=== PATIENT | female | born 1990 | race Caucasian/White ===

== ENCOUNTER 2024-09-26 13:06 | Inpatient (IN) | payer OTHER, SELFPAY ==
[2024-09-26] VITALS (8 sets, daily range): BP systolic 98–123; BP diastolic 48–96; BMI 16.8; BMI 17.0
[2024-09-26 07:10] LABS: Amphetamines Negative (Negative); Barbiturates Negative (Negative); Benzodiazepines Negative (Negative); Buprenorphine Negative (Negative); Cocaine Negative (Negative); Marijuana Positive (Negative); Methadone Negative (Negative); Methamphetamines Negative (Negative); Opiates Negative (Negative); Phencyclidine Negative (Negative); Tricyclic Antidepressants Negative (Negative)
[2024-09-26] MEDS: NSS 1000 IV ×2 (07:36→09:09)
--- NOTE | 2024-09-26 07:40 | EDRN ---
Received patient in bed in Crisis room 2. Patient with visual and auditory hallucinations. Per parents that patient has not been eating or drinking well for the past 2 weeks. Patient stated that the voices do not tell her to hurt herself or others.
Patient moved to ED room 11 for cardiac monitoring.
--- NOTE | 2024-09-26 07:40 | ED.GENMED ---
History of Present Illness
General
Chief Complaint: Hallucinations
Source: patient and family
Exam Limitations: altered mental status
Time Seen by Provider: 09/26/24 07:06
History of Present Illness
History of Present Illness:
34-year-old female history of anxiety and depression not on any medications at this time never been hospitalized, presents for paranoid thoughts, some delusions of people or after, she was at her boyfriend's for a few weeks, called her family states
that she has been in the closet, worried that people are looking at her, she is lost about 30 pounds not eating or drinking for at least a week or 2, admits to marijuana use no methamphetamine use, never had problems with her thyroid, she had no
fevers,
Past History
Past History
ED Past Medical History: Psychiatric
ED Past Surgical History: None
Social History
Tobacco: Smoker
Alcohol: Occasional
Drug: Marijuana
Personal: Single
Living: with family
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
Review of Systems
Review of Systems
All Other Systems: Not applicable
Constitutional: Reports weight loss, fatigue and sleep disturbance; Denies fever
EENT: Reports no symptoms
Respiratory: Reports no symptoms
Cardiac: Reports no symptoms
Psychiatric: Reports depression, anxiety and hallucinations; Denies suicidal
Phy Exam
Physical Exam
Physical Exam:
Physical Exam
General: 34 female looks thin affect is flat cooperative
Neck: Lips are dry no goiter
Heart: s1/s2 regular rate and rhythm, no murmur. equal radial pulses.
Lungs: no acute respiratory distress. clear bilaterally
Neuro: alert and oriented. no focal neurological deficits
Skin: no rash
Psychiatric: Somewhat disheveled flat, cooperative not suicidal little bit fidgety
Extremities: no edema.
Course
Orders/Labs/Results
Orders:
Orders
09/26/24 06:26
Urinalysis Reflex To Culture Urgent
Date Specimen was Collected: 09/26/24
Time Specimen was Collected: :25
Urine Drug Abuse Screen Urgent
Date Specimen was Collected: 09/26/24
Time Specimen was Collected: 06:25
09/26/24 06:38
Crisis Consult Urgent
Reason for Consult: hallucinating
09/26/24 07:16
0.9% Sodium Chloride 1000 ml [Nss] 1,000 ml IV BOLUS
Test Result ONCE
09/26/24 07:17
Electrocardiogram (*1) Urgent
Reason for Study: QTc Monitoring
EKG- Treatment ONCE
09/26/24 07:19
Add On- LAB Urgent
Tests Added?: urine drug screen
09/26/24 07:31
Urine Drug Abuse Screen Urgent
09/26/24 07:38
Alcohol Urgent
Complete Blood Count/With Diff Urgent
Comprehensive Metabolic Panel Urgent
HCG, Serum Qualitative Screen Urgent
Magnesium Urgent
TSH Urgent
09/26/24 08:14
Magnesium Sulfate 2 Gram/50 ml [Magnesium Sulfate] 2 gram in 50 ml IV NOW
Potassium Chloride [KCl] 40 meq PO NOW STA
Potassium Chloride [KCl] 40 meq 0.9% Sodium Chloride 250 ml [Nss] 250 ml IV NOW
09/26/24 08:15
PSYCHIATRY CONSULT Routine
Consulting Provider: Ernie Pratt
Was physician already notified: Yes
Abnormal Lab Results
09/26/24 09/26/24
06:26 07:38
RBC 3.06 L 10^6/uL
(4.20-5.40)
Hgb 11.1 L g/dL
(12.0-16.0)
Hct 30.0 L %
(37.0-47.0)
MCH 36.3 H pg
(27.0-31.0)
RDW 10.8 L %
(11.5-14.5)
MPV 11.5 H fL
(7.4-10.4)
Abs Immat Gran (auto) 0.1 H 10^3/uL
(0-0.05)
Absolute Monos (auto) 0.9 H 10^3/uL
(0.1-0.6)
Immature Gran % 0.9 H %
(0-0.5)
Lymphocytes % 19.2 L %
(20.5-51.1)
Monocytes % 9.4 H %
(1.7-9.3)
Sodium 126 L mmol/L
(135-145)
Potassium 2.3 L* mmol/L
(3.5-5.1)
Chloride 76 L mmol/L
(98-107)
Carbon Dioxide 35 H mmol/L
(22-30)
Glucose 139 H mg/dl
(70-99)
Total Bilirubin 1.6 H mg/dl
(0.2-1.3)
AST 233 H U/L
(14-36)
ALT 58 H U/L
(0-35)
Alkaline Phosphatase 208 H U/L
(38-126)
U Marijuana (THC) Screen Positive H
(Negative)
09/26/24 07:38
09/26/24 07:38
Vital Signs
Initial and Last Documented VS:
Initial Vital Signs
Temp Pulse BP Pulse Ox
98.3 F 136 123/96 98
09/26/24 05:59 09/26/24 05:59 09/26/24 05:59 09/26/24 05:59
Last Documented Vital Signs
Temp Pulse Resp BP Pulse Ox
98.3 F 97 13 109/86 98
09/26/24 05:59 09/26/24 08:00 09/26/24 08:00 09/26/24 08:00 09/26/24 05:59
MDM/Problems Addressed
Differential Diagnosis Includes:
Dehydration electrolyte abnormality hyperthyroid amphetamine use, primary psychiatric
MDM/Problems Addressed:
Mental status change, weight loss, delusions paranoia
Chronic conditions affecting care: Psychiatric illness
Acute Exacerbation and/or Progression of Chronic Illness: Psychiatric illness
*Pulse Oximetry
Patient hypoxic: no
*Critical Care Note
Total Time (30-74mins, 75-104mins- exclusive of procedures): Not Applicable
Update Note
Update Note:
Update labs are noted significantly dehydrated with electrolyte abnormality patient still delusional speaking into her phone which is not functional, I believe at this point she should be admitted medically optimized, psychiatric consultation
discussed with family patient psychiatry and hospitalist
ED Attending Note
-
Portions of this chart may have been created with voice recognition software.� Occasional wrong word or��sound alike� substitutions may have occurred due to the inherent limitations of voice recognition software.
Discharge Plan
Departure
Patient Disposition: Admit
Date of Disposition: 09/26/24
Time of Disposition: 08:36
Admit to: Telemetry
Presentation/result/management discussed w/ accepting MD/DO: Hospitalist
Patient with high blood pressure during this ER visit?: No
Condition: Fair
Covid-19: Not Applicable
Discharge Problem:
Delirium, Delusions, Acute dehydration
Prescriptions:
No Action
famotidine 20 MG tablet
20 mg PO BID Qty: 20 0RF
Rx Instructions:
for stomach prohylaxis with ibuprofen
ibuprofen 600 MG tablet
600 mg PO Q8HPRN PRN (Reason: rib pain ) Qty: 40 0RF
albuterol sulfate [Albuterol Sulfate HFA] 18 GM HFA aerosol inhaler
18 gm inhalation Q2HPRN PRN (Reason: wheezing) Qty: 1 0RF
acetaminophen-codeine 10 ML solution
10 ml PO Q4HPRN PRN (Reason: cough) Qty: 120 0RF
dexamethasone [Decadron] 6 MG tablet
6 mg PO DAILY Qty: 5 0RF
Referrals:
NONE,* [Family Provider] -
Interventions
Interventions:
*Risk Screen - Suicide Last Done: 09/26/24 06:39
*General Assessment Last Done: 09/26/24 06:39
*Neglect/Abuse Screening Last Done: 09/26/24 06:39
ED- Fall Risk Assessment Last Done: 09/26/24 07:21
*ED COVID-19 Vaccine History Last Done: 09/26/24 06:39
ED-Suicide Risk Assessment Last Done: 09/26/24 06:39
ED- Neurological Assessment Last Done: 09/26/24 06:39
ED-Psychological Assessment Last Done: 09/26/24 06:39
Discharge Date and Time
Print Language: AZERBAIJANI
[2024-09-26 07:59] LABS: % Basophils 0.8 % (0-2); % Immature Granulocytes 0.9 % (0-0.5); % Lymphocytes 19.2 % (20.5-51.1); % Monocytes 9.4 % (1.7-9.3); % Neutrophils 69.7 % (42.2-75.2); Absolute Basophils 0.1 10^3/uL (0-0.2); Absolute Immature Granulocytes 0.1 10^3/uL (0-0.05); Absolute Lymphocytes 1.8 10^3/uL (1.2-3.4); Absolute Monocytes 0.9 10^3/uL (0.1-0.6); Absolute Neutrophils 6.4 10^3/uL (1.4-6.5); HCG, Serum Qualitative Screen Negative; Hemoglobin 11.1 g/dL (12.0-16.0); Mean Corpuscular Hgb 36.3 pg (27.0-31.0); Mean Platelet Volume 11.5 fL (7.4-10.4); Nucleated Red Blood Cells % 0.4 %; Platelet Count 192 10^3/uL (130-400); Red Blood Cell Count 3.06 10^6/uL (4.20-5.40); Red Cell Dist. Width 10.8 % (11.5-14.5); White Blood Cell Count 9.2 10^3/uL (4.8-10.8)
[2024-09-26 08:08] LABS: AST (SGOT) 233 U/L (14-36); Alcohol < 10 mg/dl; Alkaline Phosphatase 208 U/L (38-126); Blood Urea Nitrogen 14 mg/dl (7-17); Calcium 8.7 mg/dl (8.4-10.2); Carbon Dioxide 35 mmol/L (22-30); Chloride 76 mmol/L (98-107); Estimated Creatinine Clearance 83 ml/min; Glucose 139 mg/dl (70-99); Magnesium 1.8 mg/dl (1.6-2.3); Potassium 2.3 mmol/L (3.5-5.1); Sodium 126 mmol/L (135-145); Total Bilirubin 1.6 mg/dl (0.2-1.3); eGFR > 60.00
[2024-09-26 08:20] LABS: ALT (SGPT) 58 U/L (0-35)
[2024-09-26] MEDS: MAGNESIUM SULFATE 50 IV (08:32)
[2024-09-26] MEDS: KCL 40 MEQ PO (08:32)
[2024-09-26 08:33] LABS: TSH 1.35 uIU/ml (0.47-4.68)
[2024-09-26 08:38] LABS: Urine Albumin 1+ (Neg - Trace); Urine Bilirubin 1+ (Negative); Urine Character Very Cloudy (Clear); Urine Color Yellow; Urine Glucose Negative (Negative); Urine Ketone Trace (Negative); Urine Leukocyte 2+ (Negative); Urine Nitrite Positive (Negative); Urine Occult Blood Trace (Negative); Urine Specific Gravity 1.015 (<1.030); Urine Urobilinogen 3+ (Neg - 1+)
[2024-09-26 08:44] LABS: Urine Squamous Cell 16-20 /LPF (Few)
[2024-09-26 08:45] LABS: Urine Amorphous Seen; Urine Bacteria Moderate (Negative); Urine Red Blood Cell 0-2 /HPF (0-2)
[2024-09-26] MEDS: KCL 270 MEQ IV (09:08)
[2024-09-26 09:26] LABS: Cortisol, Random 37.9 ug/dl
[2024-09-26 10:01] LABS: Folate 6.3 ng/ml (2.76-20); Vitamin B12 > 1000 pg/ml (239-931)
[2024-09-26] MEDS: ATIVAN 1 MG IV ×2 (10:05→13:03)
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
[2024-09-26] MEDS: ZYPREXA ZYDIS (ORALLY DISINTEGRATING) 5 MG PO (11:51)
[2024-09-26 14:15] LABS: Amylase 137 U/L (30-110)
[2024-09-26 14:25] LABS: Lipase 2152 U/L (23-300)
--- NOTE | 2024-09-26 15:00 | HPS.HSE ---
Family Physician
-
Family Physician: * NONE
Chief Complaint
-
has not been eating, AH/VH
History of Present Illness
34 female with no significant past medical history presenting with evidence of acute psychosis. Symptomatology reported by mother and herself of hallucinations visually and auditory along with not eating for the past 3 to 4 weeks with significant
amount of weight loss. States that she has been drinking. Has not been under any type of significant amount of stress. No history in herself nor family of psychiatric illnesses. She does not have suicidal or homicidal ideations at this time.
Should be noted she does admit to vomiting several times over the last couple days some of these times she noted blood in her vomitus
Medical History
Past Medical History
Past Medical History: Reports None
Past Surgical History: Reports None
Social History
Tobacco: Non-smoker
Alcohol: Occasional
Drug: Marijuana
Personal: Single
Living: With Roomate
Employment: Not Employed
Family History
Family History: Not pertinent
Allergies / Home Medications
Allergies reflects when Allergies were last updated in [facility].
Home Medications with original date entered in [facility]
Allergy/Medication List:
Allergies
Allergy/AdvReac Type Severity Reaction Status Date / Time
No Known Allergies Allergy Unverified 10/05/09 19:11
Home Medications
No Meds [No Current Medications] 09/26/24
Review of Systems
-
A 12 point ROS was completed and negative except as noted: Yes
Physical Exam
Vital Signs
Vital Signs
Temp Pulse Resp BP Pulse Ox
98.3 F 97 13 109/86 98
09/26/24 05:59 09/26/24 08:00 09/26/24 08:00 09/26/24 08:00 09/26/24 05:59
Physical Exam
General: Poor Appetite, Cachectic and Other
HEENT: NormoCephalic and Anicteric
Respiratory: Clear
Cardiac: S1/S2 and Regular Rhythm
GI: Soft, Non Tender, Non Distended and Normal Bowel Sounds
Musculoskeletal: No Clubbing and No Cyanosis
Skin: Warm
Neuro: Awake and Alert
Psych: Agitated and Other (Bizarre behavior, her cell phone is . She is acting like she is talking on her cell phone with someone having a full conversation. Speech pressured)
Laboratory Results
-
09/26/24 07:38
09/26/24 07:38
Laboratory Results
Total Bilirubin 1.6 mg/dl (0.2-1.3) H 09/26/24 07:38
AST 233 U/L (14-36) H 09/26/24 07:38
ALT 58 U/L (0-35) H 09/26/24 07:38
Alkaline Phosphatase 208 U/L (38-126) H 09/26/24 07:38
Lipase Cancelled 09/26/24 11:44
Impression/Plan
-
Acute psychosis
--Hearing voices but states they are making noises. No evidence that these voices are telling her to harm herself or not to eat
--No history of psychiatric illnesses
-Schizophrenia versus bipolar. Psychiatry following. Recommended Zyprexa Ativan. 121 ordered.
Vomiting with reports of hematemesis
-GI consult
-Provide Carafate and PPI
Bulimia as BMI is less than 18.5, has intentionally not been eating
-No history of eating disorders
-Concern for refeeding syndrome
-Monitor electrolytes daily including phosphorus level
-Encourage p.o. intake as tolerated
Hypokalemia
--S/p 80 mEq in the ED
-Obtain stat level
-Give additional 80 mEq
-Monitor on telemetry
--- NOTE | 2024-09-26 16:11 | CM ---
Addendum entered by Miesha Paredes 09/26/24 16:16:
Update to admissions to add dad to chart David Garcia [phone]
Admissions unable to verify if pt is active with [facility]- plan to follow up with [facility] during next business day
Original Note:
CM met withpt and mother bedside
Pt sleeping soundly
Pt resides with her mother and father (Flakita and David)
Home is a capecod and pt resides in basement
Pt currently unemployed and mother said pt has a [place] plan for insurance, does not have cards
PCP- no PCP, mother interested in resident clinic info
Rx- [facility] [address]
Mother noted interest in inpt psych placement on dc
CM will continue to follow for dc planning
Discharge Disposition- TBD, follow psych recs, will need resident clinic info
[2024-09-26 17:53] LABS: Blood Urea Nitrogen 10 mg/dl (7-17); Calcium 7.9 mg/dl (8.4-10.2); Carbon Dioxide 33 mmol/L (22-30); Chloride 90 mmol/L (98-107); Estimated Creatinine Clearance 97 ml/min; Glucose 93 mg/dl (70-99); Potassium 3.5 mmol/L (3.5-5.1); Sodium 127 mmol/L (135-145); eGFR > 60.00
[2024-09-26] MEDS: CARAFATE PO ×2 (19:02→23:13)
--- NOTE | 2024-09-26 20:15 | PTCARENOTE ---
Patient arrived on unit via stretcher. Patient pulled over to bed. Patient confused and drowsy, arouses to tactile and verbal stimuli. Patient placed on heart monitor. 1:1 observation in the room. Care ongoing.
[2024-09-26] MEDS: NSS (PRESERVATIVE FREE) 10 ML IV (21:47)
[2024-09-26] MEDS: PROTONIX IV 40 MG IV (21:48)
[2024-09-26] MEDS: HEPARIN SC ×2 (21:48→22:06)
[2024-09-26] MEDS: ZYPREXA ZYDIS (ORALLY DISINTEGRATING) PO (23:13)
[2024-09-27] VITALS (7 sets, daily range): BP systolic 97–127; BP diastolic 60–80
[2024-09-27] MEDS: NSS 1000 IV (00:55)
[2024-09-27 07:09] LABS: Phosphorus 1.2 mg/dl (2.5-4.5)
[2024-09-27] MEDS: CARAFATE 1 GRAM PO ×4 (08:09→21:04)
[2024-09-27] MEDS: PROTONIX IV 40 MG IV ×2 (08:10→20:59)
[2024-09-27] MEDS: NSS (PRESERVATIVE FREE) 10 ML IV ×2 (08:11→20:59)
[2024-09-27] MEDS: HEPARIN SC ×2 (08:12→21:04)
[2024-09-27 08:58] LABS: Blood Urea Nitrogen 8 mg/dl (7-17); Calcium 8.1 mg/dl (8.4-10.2); Carbon Dioxide 29 mmol/L (22-30); Chloride 96 mmol/L (98-107); Estimated Creatinine Clearance 98 ml/min; Glucose 93 mg/dl (70-99); Potassium 3.2 mmol/L (3.5-5.1); Sodium 132 mmol/L (135-145); eGFR > 60.00
--- NOTE | 2024-09-27 10:11 | CON.GI ---
Consultation
-
Date/Time Consultation Requested: 09/26/2024 1136am
Date/Time Consultation Performed: 09/27/2024 900am
Requesting Provider: Dr Pratt
Performing Provider: Dr Rosas
Reason for Consultation: Abdominal pain and wt loss
Medical History
Chief Complaint / HPI
Chief Complaint: abd pain
History of Present Illness:
Chio is a 34yo W with little medical care who was brought to ER by mom for hallucinations. GI consulted for abd pain. She reports that 2 years ago had some slight right sided abd pain and recommended to have her gallbladder removed. She
did not go through with that. For the past 3 years she reports that her weight fluctuates up and down depending on stress her appetite changes. Stressors are boyfriend job and other things in her life. She was seeing an outpatient therapist but
stopped in the past. She denies h/o anorexia or bulimia. She describes her abd pain as epigastric and worse post prandial. She had some nausea and vomiting but since admission. Denies dysphagia, reflux, heartburn diarrhea or constipation. She
does not weigh her self much so not clear about wt loss. She drinks 2-3 well alcoholic beverages per day on average and more since the celebration. She lives in [place] with her and mother. Her report reports hallucinations and that was
why she was brought into the ER yesterday
Past Medical History
Past Medical History: None (But does not get routine medical care)
Past Surgical History: None
Social History
Tobacco: Smoker
Alcohol: Daily (2-3 hard liquor drinks per day. More recently due to holidays)
Drug: Marijuana
Living: Other (In / with her BF and mother)
Allergies / Home Medications
Allergy/AdvReac Type Severity Reaction Status Date / Time
No Known Allergies Allergy Unverified 10/05/09 19:11
�Medication �Instructions �Recorded
No Meds [No Current Medications] 09/26/24
Review of Systems
-
All other systems: A 12 pt ROS was Negative except as stated above in HPI
Vital Signs
Temp Pulse Resp BP Pulse Ox
98.1 F 93 16 127/80 99
09/27/24 03:30 09/27/24 03:30 09/27/24 03:30 09/27/24 03:30 09/27/24 03:30
Physical Exam
Exam
GEN: No acute distress, conversant, pleasant
HEENT: anicteric, poor dentition extraocular movements intact, clear oropharynx without exudates
GI: soft, non-distended, epigastric tender to palpation, normal active bowel sounds, no hepatosplenomegaly
EXT: warm, well perfused, trace edema bilaterally
NEURO: AAOx3, non-focal several tattoos over arms
Results
WBC 9.2 10^3/uL (4.8-10.8) 09/26/24 07:38
Hgb 11.1 g/dL (12.0-16.0) L 09/26/24 07:38
Hct 30.0 % (37.0-47.0) L 09/26/24 07:38
MCV 98.0 fL (81.0-99.0) 09/26/24 07:38
Plt Count 192 10^3/uL (130-400) 09/26/24 07:38
Absolute Neuts (auto) 6.4 10^3/uL (1.4-6.5) 09/26/24 07:38
Sodium Cancelled 09/27/24 08:25
Potassium Cancelled 09/27/24 08:25
Chloride Cancelled 09/27/24 08:25
Carbon Dioxide Cancelled 09/27/24 08:25
BUN Cancelled 09/27/24 08:25
Creatinine Cancelled 09/27/24 08:25
Calcium Cancelled 09/27/24 08:25
Total Bilirubin 1.6 mg/dl (0.2-1.3) H 09/26/24 07:38
AST 233 U/L (14-36) H 09/26/24 07:38
ALT 58 U/L (0-35) H 09/26/24 07:38
Alkaline Phosphatase 208 U/L (38-126) H 09/26/24 07:38
Amylase Cancelled 09/26/24 11:44
Lipase Cancelled 09/26/24 11:44
Diagnostic Image Results:
None yet
Prior GI Procedures:
EGD/Colonoscopy: None prior
Assessment / Plan
-
Chio is a 34yo W with little medical care who was brought in by mom for hallucinations. GI consulted for epigastric abd pain and elevated lipase suggestive of acute pancreatitis in setting of ETOH abuse.
Impression
- Abd pain with elevated lipase >1000
suggestive of acute pancreatitis, likely due to ETOH abuse
other consideration is gallstones
- Elevated LFTs
suspect alcoholic hepatitis or biliary disease
- Hallucinations
- Chronic wt loss
Over span of 3 yrs
- Abnormal electrolytes
Recommendations
- Recommend CTAP with IV oral contrast
- Please replete electrolytes aggressively
- C/w LR at 200mL/hr
- CLD
- ETOH cessation
- Ordered triglyceride level, viral hepatitis serologies
Mother updated at bedside. Will follow with you
-
-
Thank you for consultation and allowing me to participate in the patient's care. Please call the early childhood education coordinator GI physician during the after hours with any questions or concerns.
[2024-09-27] MEDS: OMNIPAQUE 50 ML PO (10:23)
[2024-09-27] MEDS: LR 1000 IV ×3 (11:06→22:14)
--- NOTE | 2024-09-27 14:46 | W.PN.UPDATE ---
Update Note
Progress Note Update
34 y/o woman who presented with 30 lbs. weight loss and vague abdominal pain and vomiting admitted yesterday and discovered to have pancreatitis,likely alcoholic. Dr. Rosas's consult appreciated. Yesterday pt. was hallucinating and delusional. Was
started on Zyprexa 5 mg. HS (and a dose in ED) and Ativan PRN.
She is now resting in bed, parents with her. Is calm but does have mild tremor and complains of leg cramping. Thought her last drink was yesterday, but infact on Saturday. She now admits she has been drinking very heavily.
She is alert and oriented. Mood is good. Affect appropriate. No indication of delusions or hallucinations now. Seems to minimize the serverity ofher drinking and seems to want to 'cut back' rather than stop, although admits that would be a good
idea.
CT scan just reported showing pancreatitis, no gallbladder disease.
Labs: AST 233, ALT 58, Alk Phos 208, CRP 19.9, Lipase very high at 2152. Amylase 137. B12 >1000. Na has risen to 132, K 3.2. Hgb 11.1, MCV 98.0 Ca 8.1
Will give 1 mg.Ativan PO now and have ordered MSAS protocol. Continue Zyprexa.
May benefit from [facility] and from alcohol treatment after discharge.
Psychiatry will follow.
[2024-09-27] MEDS: ATIVAN 1 MG PO (15:07)
--- NOTE | 2024-09-27 17:11 | W.PN.HOSP.TC ---
Today's Communication/Plan
-
121
Continue Ativan and Zyprexa
IV fluids
PPI Carafate
Follow GI recommendation
Assessment / Plan
Assessment / Plan
General: Poor Appetite, Cachectic and Other
HEENT: NormoCephalic and Anicteric
Respiratory: Clear
Cardiac: S1/S2 and Regular Rhythm
GI: Soft, Non Tender, Non Distended and Normal Bowel Sounds
Musculoskeletal: No Clubbing and No Cyanosis
Skin: Warm
Neuro: Awake and Alert
Psych: Agitated and Other (Bizarre behavior, her cell phone is . She is acting like she is talking on her cell phone with someone having a full conversation. Speech pressured)
Acute psychosis
--Hearing voices but states they are making noises. No evidence that these voices are telling her to harm herself or not to eat
--No history of psychiatric illnesses
-Schizophrenia versus bipolar. Psychiatry following. Recommended Zyprexa Ativan. 121 ordered.
Acute pancreatitis suspected secondary to alcohol use, but she does not have abdominal pain nor is or evidence of this on CT
-GI started IV fluids - LR at 200cc/hr
Vomiting with reports of hematemesis
-GI consult
-Provide Carafate and PPI
Bulimia as BMI is less than 18.5, has intentionally not been eating
-No history of eating disorders
-Concern for refeeding syndrome
-Monitor electrolytes daily including phosphorus level
-Encourage p.o. intake as tolerated
Hypokalemia
--replete prn
Anticipated Discharge: > 48 hours
Subjective/Interval History
-
Date of Service: September 27, 2024
Seen and examined. No new complaints. No acute overnight events.
Objective Data
-
Labs:
Laboratory Results
09/27/24 09/27/24
06:14 08:25
Sodium 132 L Cancelled
Potassium 3.2 L Cancelled
Chloride 96 L Cancelled
Carbon Dioxide 29 Cancelled
BUN 8 Cancelled
Creatinine 0.5 L Cancelled
Glucose 93 Cancelled
Calcium 8.1 L Cancelled
Vital Signs:
Vital Signs
Temp Pulse Resp BP Pulse Ox
98.9 F 89 16 97/62 98
09/27/24 15:50 09/27/24 15:50 09/27/24 15:50 09/27/24 15:50 09/27/24 15:50
I&O
09/26/24 09/27/24 09/28/24
06:59 06:59 06:59
Intake Total 240 / 240
Balance 240 / 240
[2024-09-27] MEDS: KCL 40 MEQ PO ×2 (18:36→21:00)
[2024-09-27] MEDS: ZYPREXA ZYDIS (ORALLY DISINTEGRATING) 5 MG PO (21:00)
[2024-09-28 03:13] VITALS: BP 95/65
[2024-09-28] MEDS: LR 1000 IV ×2 (03:16→08:17)
[2024-09-28 06:46] LABS: Hematocrit 26.2 % (37.0-47.0); Hemoglobin 9.3 g/dL (12.0-16.0); Mean Corp Hgb Conc. 35.5 g/dL (33.0-37.0); Mean Corpuscular Hgb 37.1 pg (27.0-31.0); Mean Corpuscular Volume 104.4 fL (81.0-99.0); Mean Platelet Volume 10.6 fL (7.4-10.4); Platelet Count 154 10^3/uL (130-400); Red Blood Cell Count 2.51 10^6/uL (4.20-5.40); Red Cell Dist. Width 11.7 % (11.5-14.5); White Blood Cell Count 5.1 10^3/uL (4.8-10.8)
[2024-09-28 06:51] VITALS: BP 103/63
[2024-09-28 07:25] LABS: Blood Urea Nitrogen 2 mg/dl (7-17); Calcium 8.2 mg/dl (8.4-10.2); Carbon Dioxide 30 mmol/L (22-30); Chloride 102 mmol/L (98-107); Estimated Creatinine Clearance 98 ml/min; Glucose 101 mg/dl (70-99); Phosphorus 0.7 mg/dl (2.5-4.5); Potassium 3.7 mmol/L (3.5-5.1); Sodium 137 mmol/L (135-145); Triglycerides 99 mg/dl (10-149); eGFR > 60.00
--- NOTE | 2024-09-28 07:43 | PTCARENOTE ---
Lab informed this RN of critical phosphorous value, result=0.7. made aware.
[2024-09-28] MEDS: LR IV (08:02)
[2024-09-28] MEDS: HEPARIN 5000 UNITS SC ×2 (08:14→19:28)
[2024-09-28] MEDS: PROTONIX IV 40 MG IV ×2 (08:14→19:28)
[2024-09-28] MEDS: NSS (PRESERVATIVE FREE) 10 ML IV ×2 (08:14→19:28)
[2024-09-28] MEDS: CARAFATE 1 GRAM PO ×4 (09:42→21:18)
[2024-09-28] MEDS: NEUTRA-PHOS POWDER PACKET 250 MG PO ×4 (09:43→21:18)
[2024-09-28 11:04] VITALS: BMI 17.0
--- NOTE | 2024-09-28 11:29 | CM ---
Patient seen at bedside. Patient stated that she does not feel a psych placement is needed and does not have any intension of going to a drug or alcohol treatment center also. Patient stated that she is awaiting update from physician and psych but
wants to go home with boyfriend when medically appropriate. CM will continue to follow for discharge planning needs.
Plan; home with no needs vs psych pending further assessments
--- NOTE | 2024-09-28 11:32 | W.PN.HOSP.TC ---
Today's Communication/Plan
-
Advance diet
Replete phosphate
Assessment / Plan
Assessment / Plan
Gen-AAOx3, NAD
HEENT-NC, AT, anicteric, clear oral mm
Neck-supple
CV-reg, no M, +S1/S2
Lungs-clear B/L
Abd-soft, nondistended, mild tenderness diffusely
Ext-no edema
Musculoskeletal-no cyanosis, clubbing
Skin-warm and dry
Neuro-grossly non-focal
Psych-calm, cooperative
Acute psychosis
--Hearing voices but states they are making noises. No evidence that these voices are telling her to harm herself or not to eat
--No history of psychiatric illnesses
-Schizophrenia versus bipolar. Psychiatry following. Recommended Zyprexa Ativan. 1:1 ordered.
Acute pancreatitis - suspected secondary to alcohol use. Mild tenderness on exam. Pancreas is normal on CT. Advance diet to low-fat. Tolerating clears. Discussed with GI.
Acute hepatitis -suspect alcohol induced. Recheck LFTs. Viral hepatitis panel pending.
Alcohol use disorder -continue withdrawal protocol. Add thiamine and folic acid.
Hypophosphatemia -replete IV and p.o. Check levels daily.
Vomiting with reports of hematemesis -resolved.
Macrocytic anemia -hemoglobin 9.3. Baseline unknown. B12 and folic acid are normal.
Bulimia as BMI is less than 18.5, has intentionally not been eating
-No history of eating disorders
-Concern for refeeding syndrome
-Monitor electrolytes daily including phosphorus level
-Encourage p.o. intake as tolerated
Hypokalemia -resolved.
Hyponatremia -resolved.
Moderate protein/calorie malnutrition
Malnutrition induced amenorrhea -last menses was more than a year ago.
Full code
Anticipated Discharge: Within 24 hours
Subjective/Interval History
-
Date of Service: September 28, 2024
Patient seen and examined. Has various complaints including cramping in her feet, abdominal pain, loose stools. Tolerating clear liquids.
Objective Data
-
Labs:
Laboratory Results
09/28/24
06:29
WBC 5.1
Hgb 9.3 L
Hct 26.2 L
Plt Count 154
Sodium 137
Potassium 3.7
Chloride 102
Carbon Dioxide 30
BUN 2 L
Creatinine 0.4 L
Glucose 101 H
Calcium 8.2 L
Vital Signs:
Vital Signs
Temp Pulse Resp BP Pulse Ox
98.6 F 78 16 103/63 100
09/28/24 06:51 09/28/24 06:51 09/28/24 06:51 09/28/24 06:51 09/28/24 06:51
I&O
09/27/24 09/28/24 09/29/24
06:59 06:59 06:59
Intake Total 240 / 240 720 / 720
Balance 240 / 240 720 / 720
Review of Systems
-
History Source: Patient
All other systems: Reviewed and negative
[2024-09-28 11:55] VITALS: BP 95/56
[2024-09-28] MEDS: FOLVITE 1 MG PO (12:25)
[2024-09-28] MEDS: SODIUM PHOSPHATE 255 MEQ IV (12:25)
[2024-09-28] MEDS: THIAMINE INJECTION 200 MG IV (12:25)
[2024-09-28 12:45] LABS: Vitamin D, 25-OH*** < 12.8 ng/mL (30-80)
--- NOTE | 2024-09-28 14:07 | W.PN.UPDATE ---
Update Note
Progress Note Update
Pt seen, chart reviewed. Pt alert, calm, cooperative, sitting up in bed, with slight generalized tremor. No signs of psychosis, make appropriate conversation, affect stable/appropriate. Pt on MSAS protocol, has not needed Ativan. Pt got one dose
of Zyprexa 5 mg HS last night, states she slept okay, reports she is eating. Mood stable, denies SI.
Imp: Unspecified psychosis, appears to be resolving
Alcohol abuse (reported heavy drinking recently), concern for withdrawal
Cannabis Use Disorder, Moderate; Hx of opioid use disorder (IVDA)
Rec: continue MSAS/ withdrawal precautions. Will continue Zyprexa and likely taper off prior to discharge
Will stop 1:1 (does not appear necessary); will follow
--- NOTE | 2024-09-28 15:07 | W.PN.GI.CBS2 ---
Today's Communication / Plan
-
Tolerating low fat diet
Replete electrolytes aggressively
Would benefit from EGD for GERD and colonoscopy for diarrhea outpatient basis
GI will sign off please call for ?
Assessment / Plan
-
Chio is a 34yo W with little medical care who was brought in by mom for hallucinations. GI consulted for epigastric abd pain and elevated lipase suggestive of acute pancreatitis in setting of ETOH abuse.
Impression
- Abd pain with elevated lipase >1000
Suggestive of acute pancreatitis, likely due to ETOH abuse
CT AP with out choledocholithiasis
- Abnormal CT suggestive of colitis
Stool studies thus far negative
Colon thickening and diarrhea can also be in setting of ETOH use, malnutrition and hypoalbuminemia.
- Elevated LFTs
- GERD
- Hallucinations
- Chronic wt loss
Over span of 3 yrs
- Abnormal electrolytes
Recommendations
- Results of CTAP with IV oral contrast discussed with patient. Colon thickening and diarrhea can also be in setting of ETOH use, malnutrition and hypoalbuminemia.
- Please replete electrolytes aggressively. Low phos and eating can put her in risk of refeeding syndrome
- Tolerating low fat diet
- ETOH cessation
- Viral hepatitis serologies still pending
- Stool studies negative
- C/w PPI
- She would benefit from OP EGD/colon once recovered from pancreatitis. She can FU with me in GI office
GI will sign off please call for ?
Subjective
Subjective
Date of Service: September 28, 2024
Her abd pain improved. She is tolerating low fat diet. Denies nausea/vomiting. Had 2 looser BMs overnight.
Objective
Data Reviewed
Laboratory Data:
Laboratory Results
09/28/24 06:29
09/28/24 06:29
Laboratory Results
Phosphorus 0.7 mg/dl (2.5-4.5) L* 09/28/24 06:29
Magnesium 1.8 mg/dl (1.6-2.3) 09/26/24 07:38
Total Bilirubin 1.6 mg/dl (0.2-1.3) H 09/26/24 07:38
AST 233 U/L (14-36) H 09/26/24 07:38
ALT 58 U/L (0-35) H 09/26/24 07:38
Alkaline Phosphatase 208 U/L (38-126) H 09/26/24 07:38
Amylase Cancelled 09/26/24 11:44
Lipase Cancelled 09/26/24 11:44
Vital Signs and I&O:
Vital Signs
Temp Pulse Resp BP Pulse Ox
98.2 F 71 16 95/56 98
09/28/24 11:55 09/28/24 11:55 09/28/24 11:55 09/28/24 11:55 09/28/24 11:55
I&O
09/27/24 09/28/24 09/29/24
06:59 06:59 06:59
Intake Total 240 / 240 720 / 720
Balance 240 / 240 720 / 720
Physical Exam
Physical Exam
GEN: No acute distress, conversant, pleasant
HEENT: anicteric, extraocular movements intact, clear oropharynx without exudates
GI: soft, non-distended, epigastric tender to palpation, normal active bowel sounds, no hepatosplenomegaly
EXT: warm, well perfused, trace edema bilaterally ++tattoos over arms bilaterally
NEURO: AAOx3, non-focal
[2024-09-28 16:00] VITALS: BP 105/71
[2024-09-28 18:52] LABS: Hepatitis B Surface Antigen Negative (Negative)
[2024-09-28 18:57] LABS: Hepatitis A IgM Antibody Negative (Negative)
[2024-09-28 19:00] VITALS: BP 102/61
[2024-09-28 19:10] LABS: Hepatitis A Antibody, Total Positive (Negative); Hepatitis C Antibody Negative (Negative)
[2024-09-28 20:34] LABS: Hepatitis B Surface Antibody Indeterminate
[2024-09-28] MEDS: ZYPREXA ZYDIS (ORALLY DISINTEGRATING) 5 MG PO (21:18)
[2024-09-28 23:00] VITALS: BP 118/62
[2024-09-29] VITALS (10 sets, daily range): BP systolic 93–141; BP diastolic 63–80
[2024-09-29 07:35] LABS: Hematocrit 26.3 % (37.0-47.0); Hemoglobin 9.3 g/dL (12.0-16.0); Mean Corp Hgb Conc. 35.4 g/dL (33.0-37.0); Mean Corpuscular Hgb 37.1 pg (27.0-31.0); Mean Corpuscular Volume 104.8 fL (81.0-99.0); Mean Platelet Volume 10.8 fL (7.4-10.4); Platelet Count 183 10^3/uL (130-400); Red Blood Cell Count 2.51 10^6/uL (4.20-5.40); Red Cell Dist. Width 11.9 % (11.5-14.5); White Blood Cell Count 8.3 10^3/uL (4.8-10.8)
[2024-09-29 07:55] LABS: Blood Urea Nitrogen < 2 mg/dl (7-17); Carbon Dioxide 28 mmol/L (22-30); Chloride 103 mmol/L (98-107); Estimated Creatinine Clearance 98 ml/min; Glucose 96 mg/dl (70-99); Magnesium 1.4 mg/dl (1.6-2.3); Potassium 3.4 mmol/L (3.5-5.1); Sodium 140 mmol/L (135-145); eGFR > 60.00
[2024-09-29] MEDS: PROTONIX 40 MG PO (09:08)
[2024-09-29] MEDS: NEUTRA-PHOS POWDER PACKET 250 MG PO ×2 (09:08→12:53)
[2024-09-29] MEDS: CARAFATE 1 GRAM PO ×2 (09:08→13:11)
[2024-09-29] MEDS: FOLVITE 1 MG PO (09:08)
[2024-09-29] MEDS: THIAMINE INJECTION 200 MG IV (09:09)
[2024-09-29] MEDS: HEPARIN 5000 UNITS SC ×2 (09:10→20:42)
[2024-09-29] MEDS: NSS (PRESERVATIVE FREE) IV (09:19)
[2024-09-29] MEDS: PROTONIX IV IV (09:20)
--- NOTE | 2024-09-29 10:28 | W.PN.UPDATE ---
Update Note
Progress Note Update
Patient seen, chart reviewed, discussed with staff. Ms. Garcia reports being tired today, she did not sleep well overall but relates this to being in the hospital. She does report sleep has greatly improved since prior to admission. Appetite has
also improved. Denies any further AH/VH, psychosis, delusions. Declines any ETOH tx, IP or OP at this time. She is eager for DC but understands she still requires treatment for pancreatitis/electrolyte abnormalities.
Impression/Recommendation: Unspecified psychosis, resolving; Alcohol abuse, concern for withdrawal; Cannabis Use Disorder, Moderate; Hx of opioid use disorder (IVDA) - Continue MSAS/ withdrawal precautions. Will decrease Zyprexa and likely taper
off prior to discharge.
--- NOTE | 2024-09-29 10:28 | CM ---
Patient seen at bedside, patient states she does not want to accept outpatient referral as she does not feel that they will be helpful. Patient states she will be able to have supports with her family and boyfriend. CM will review with patient
physician. CM will continue to follow for discharge planning needs.
Plan; patient declining all resources with psych/drug and alcohol. pending physician assessment.
--- NOTE | 2024-09-29 10:46 | W.PN.HOSP.TC ---
Addendum entered and electronically signed by Wayne Callejas DO 09/29/24 13:00:
moderate protein calorie malnutrition of chronic illness
Original Note:
Today's Communication/Plan
-
Check norovirus
Replete electrolytes
Add melatonin
Labs in the morning
Assessment / Plan
Assessment / Plan
Gen-AAOx3, NAD
HEENT-NC, AT, anicteric, clear oral mm
Neck-supple
CV-reg, no M, +S1/S2
Lungs-clear B/L
Abd-soft, nondistended, mild tenderness diffusely
Ext-no edema
Musculoskeletal-no cyanosis, clubbing
Skin-warm and dry
Neuro-grossly non-focal
Psych-calm, cooperative
Acute psychosis
--Hearing voices but states they are making noises. No evidence that these voices are telling her to harm herself or not to eat
--No history of psychiatric illnesses
-Schizophrenia versus bipolar. Psychiatry following. Recommended Zyprexa Ativan. 1:1 ordered.
Acute pancreatitis - suspected secondary to alcohol use. Mild tenderness on exam. Pancreas is normal on CT. Advance diet to low-fat. Tolerating clears. Discussed with GI.
Acute hepatitis -suspect alcohol induced. Recheck LFTs. Viral hepatitis panel pending.
Alcohol use disorder -continue withdrawal protocol. Add thiamine and folic acid.
Hypophosphatemia -improving.
Vomiting with reports of hematemesis -resolved.
Acute diarrhea -check norovirus PCR. Cryptosporidium/Giardia negative. C. difficile antigen positive, toxin negative. Stool culture pending. She states boyfriend also has a diarrheal illness.
Macrocytic anemia -hemoglobin stable at 9.3. Baseline unknown. B12 and folic acid are normal.
Bulimia as BMI is less than 18.5, has intentionally not been eating
-No history of eating disorders
-Concern for refeeding syndrome
-Monitor electrolytes daily including phosphorus level
-Encourage p.o. intake as tolerated
Hypokalemia -will replete.
Hypomagnesemia -replete IV.
Hyponatremia -resolved.
Moderate protein/calorie malnutrition
Malnutrition induced amenorrhea -last menses was more than a year ago.
Full code
Dispo -potential discharge tomorrow if stable.
Anticipated Discharge: Within 24 hours
Subjective/Interval History
-
Date of Service: September 29, 2024
Patient seen and examined. Complaining of loose stools.
Objective Data
-
Labs:
Laboratory Results
09/29/24
06:17
WBC 8.3
Hgb 9.3 L
Hct 26.3 L
Plt Count 183
Sodium 140
Potassium 3.4 L
Chloride 103
Carbon Dioxide 28
BUN < 2 L
Creatinine 0.5 L
Glucose 96
Calcium 8.0 L
Vital Signs:
Vital Signs
Temp Pulse Resp BP Pulse Ox
98.3 F 73 16 102/66 100
09/29/24 07:00 09/29/24 07:00 09/29/24 07:00 09/29/24 07:00 09/29/24 07:00
I&O
09/28/24 09/29/24 09/30/24
06:59 06:59 06:59
Intake Total 720 / 720 2835 / 2835
Balance 720 / 720 2835 / 2835
Review of Systems
-
History Source: Patient
All other systems: Reviewed and negative
--- NOTE | 2024-09-29 10:52 | PN.CDI ---
CDI
- -
CDI:
Physician Documentation Request
Admit Date: 09/26/24 13:06
Dear Doctor Júnior,
09/28 RD notes and assessment 'underweight (<18.5) Subcutaneous loss over triceps mild, Muscle loss over temporal mild , calf mild. Patient with a 23 lb (13%) weight loss in 6 months (significant). During visit RD able to visualize some fat loss over
triceps, calf muscle and slight temporal wasting. With weight loss of > 10% in 6 months and < 75% estimated needs > 6 months pt meets AND/ASPEN criteria for moderate protein calorie malnutrition of chronic illness.'
Based on the above information and your assessment, which of the following most accurately represents the patient's nutritional status?
Moderate Malnutrition
Other (please specify)
[place] Criteria ([facility] Hospitalist 2017)
2 or more criteria must be present for either
non severe or severe malnutrition
Note that the criteria differs related to the
presence of an acute or chronic illness
Acute Illness Chronic Illness
Energy Intake Non Severe: <75% for >7 days Non Severe: <75% for >1 month
Severe: <50% for >5 days Severe: <75% for >1 month
Weight Loss Non Severe: 1-2% over 1 week Non Severe: 5% over 1 month
5% over 1 month 7.5% over 3 months
7.5% over 3 months 10% over 6 months
1 year N/A 20% over 1 year
Severe: >2% over 1 week Severe: >5% over 1 month
>5% over 1 month >7.5% over 3 months
>7.5% over 3 months >10% over 6 months
1 year N/A >20% over 1 year
Body Fat Non Severe: Mild Decrease Non Severe: Mild Loss
Severe: Moderate Decrease Severe: Severe Loss
Muscle Mass Non Severe: Mild Decrease Non Severe: Mild Loss
Severe: Moderate Decrease Severe: Severe Loss
Fluid Accumulation Non Severe: Mild Accumulation Non Severe: Mild Accumulation
Severe: Moderate to severe Severe: Moderate to severe
accumulation accumulation
Reduced Heat Treating Furnace Tender Strength Non Severe: N/A Non Severe: N/A
Severe: Measurably reduced Severe: Measurably reduced
Use of terms such as suspected, likely, concern for, or probable (associated with a specific diagnosis that is being evaluated, monitored, or treated as if it exists) are acceptable and can be coded in the inpatient setting, when documented at the
time of discharge.
Thank you,
Kim Victor RN, BSN
CDI Specialist
tiger text
Please use your independent medical judgment in providing your response.
[2024-09-29] MEDS: MAGNESIUM SULFATE 100 IV (11:03)
[2024-09-29] MEDS: KCL 40 MEQ PO (11:09)
--- NOTE | 2024-09-29 13:41 | PTCARENOTE ---
patient reports she hears voices but they are not telling her to harm herself, tolerating diet but eats small quantities. had 4 loose stools last night. independent in room, coloring with colored pencils on coloring sheets at present, vss, will
continue to monitor.
--- NOTE | 2024-09-29 15:31 | RR ---
Addendum entered by Nelida Lopez RN 10/02/24 08:00:
at 1529, PCT Tutu came out and said, 'I need you in this room now!'. patient with head at foot of bed lying on left side and appearing to be having grand mal seizure, having rhythm muscle contractions/quivering in all extremities not responding to
verbal or tactile stimuli, drooling. color blue. at 1431, A Rapid Response was called on this patient, please see Rapid Response form. Prior to event, patient was sitting on edge of bed, using colored pencils and coloring on sheets of paper.
Original Note:
at 1529, PCT Tutu came out and said, 'I need you in this room now!'. patient with head at foot of bed lying on left side and appearing to be having grand mal seizure, having rhythm muscle contractions/quivering in all extremities not responding to
verbal or tactile stimuli, drooling. color blue. at 1431, A Rapid Response was called on this patient, please see Rapid Response form.
[2024-09-29] MEDS: ATIVAN 2 MG IV (15:36)
[2024-09-29] MEDS: NSS (PRESERVATIVE FREE) 1 ML IV (15:36)
[2024-09-29 15:40] LABS: Glucose - Point of Care 157 mg/dl (70-99)
--- NOTE | 2024-09-29 15:54 | W.PN.UPDATE ---
Update Note
Progress Note Update
Called to see patient for rapid response. Apparently patient turned blue and had tonic-clonic activity looking like a seizure. Broke with a dose of IV Ativan.
On my assessment she is postictal but arousable. Not completely following commands. Stat head CT ordered.
Glucose is normal. Stat neurology consult.
Transferred to IMU.
Father at the bedside states her last seizure was 2 years ago.
--- NOTE | 2024-09-29 16:38 | PTCARENOTE ---
Syeda given telephone report. belongings to be sent to new room.
[2024-09-29 16:47] LABS: Magnesium 3.1 mg/dl (1.6-2.3)
[2024-09-29 16:58] LABS: Creatine Phosphokinase 38 U/L (30-135)
--- NOTE | 2024-09-29 17:19 | PTCARENOTE ---
pt nsr on monitor, see vitals as charted. pt drowsy but able to answer questions appropriately, transfer to imu per order.
--- NOTE | 2024-09-29 17:28 | PTCARENOTE ---
cannot verify VS captured prior to 09/29/2024 approx 17:15.
[2024-09-29 17:35] LABS: Prolactin 47.8 ng/ml (3.0-18.6)
--- NOTE | 2024-09-29 17:43 | PTCARENOTE ---
Pt received post rapid response and head CT. Drowsy and lethargic but oriented x3 when arousable. EKG obtained upon arrival. Pt's parents at bedside, updated on plan of care. Bed alarm placed for safety.
--- NOTE | 2024-09-29 18:21 | PTCARENOTE ---
Pt very lethargic, unable to safely administer PO medications. D/W neurology at bedside and Dr. Callejas via TT. PO meds held, orders to be placed by hospitalist for IV meds where able.
--- NOTE | 2024-09-29 18:22 | CON.NEURO ---
Consultation
Order
Date of Consultation: 09/29/24
Requesting Provider: Wayne Callejas DO
Reason for Consult: seizure
Neurology Consultation Note.
HPI: This is a 34-year-old woman who presented to [facility] on 09/26/2024 with an acute pancolitis.
Neurology consultation was requested for evaluation and management of a seizure. According to the EMR patient had less than 1 minute of generalized tonic-clonic seizures with associated foaming at the mouth and cyanosis. She received 2 mg of
lorazepam
At 1536 with resolution of abnormal movements.
VS: 93/71, 72, afebrile
PDMP: None
Labs: Phosphorus�0.7�2.0, magnesium�1.4, normal TSH, prolactin�47.8 (3-18.6), CK [address] head wo [id number] diffuse cortical and cerebellar atrophy
MAR: Olanzapine 5 mg
PMH:ETOH addiction, opiate addiction in remission, BMI 17
PSH:none
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
FH: No family history of epilepsy
All:NKDA
ROS: Unable due to encephalopathy
General: slim
Cardio: Regular rate. Extremities are without cyanosis or edema.
Neuro:
Mental Status: lethargic, requires constant stimulation to stay awake. Oriented to name, . Does not follow requests
Cranial Nerves: Orthophoric primary gaze. Resists eye opening. No facial weakness
Motor: moves all limbs symmetrically
Reflexes: neg for clonus
Sensory: unable
Coordination: No tremors or myoclonic movements
Gait: deferred
Assessment and Plan:
I. Generalized tonic-toxic seizure, likely provoked.
II. ETOH addiction
III. Multifactorial encephalopathy (post ictal, toxic)
-Telemetry monitoring
-Avoid cerebral hypoperfusion, hypoxia and medication to lower seizure threshold (olanzapine)
-Start Keppra 1 g IV followed by 500 mg twice daily due to ongoing lethargy
-Please check ammonia, HIV
-Brain MRI without katie
-Routine EEG
-Continue Thiamine IV
-Nicotine patch
-Ativan 2 mg IV as needed for GTC lasting over 2 minutes
-The case was discussed with patient's parents
I personally reviewed all radiology and labs along with past medical records pertinent to current medical problems. Total time spent in patient care is 60 minutes.
Thank you for allowing us to participate in the care of this patient. We will continue to follow. Please do not hesitate to contact us with any questions or concerns.
Subjective/Objective
Subjective Data
Date of Service: September 29, 2024
Objective Data
Vital Signs
Temp Pulse Resp BP Pulse Ox
36.4 C 72 15 97/70 97
09/29/24 16:22 09/29/24 18:15 09/29/24 18:15 09/29/24 18:00 09/29/24 18:15
Lab Results
09/29/24 06:17
09/29/24 06:17
Sodium 140 mmol/L (135-145) 09/29/24 06:17
Potassium 3.4 mmol/L (3.5-5.1) L 09/29/24 06:17
BUN < 2 mg/dl (7-17) L 09/29/24 06:17
Glucose 96 mg/dl (70-99) 09/29/24 06:17
Calcium 8.0 mg/dl (8.4-10.2) L 09/29/24 06:17
Phosphorus 2.0 mg/dl (2.5-4.5) L 09/29/24 06:17
Vitamin B12 > 1000 pg/ml (239-931) H 09/26/24 07:38
Ur Buprenorphine Negative (Negative) 09/26/24 06:26
Patient Allergies
No Known Allergies Allergy (Unverified 10/05/09 19:11)
Medications
-
Active Medications
Generic Name Dose Route Start Last Admin
Trade Name Freq PRN Reason Stop Dose Admin
Folic Acid 1 mg 09/28/24 12:00 09/29/24 09:08
Folic Acid 1 Mg Tablet PO 10/26/24 11:59 1 mg
DAILY YOMI Administration
Heparin Sodium 5,000 units 09/26/24 20:00 09/29/24 09:10
Heparin 5,000 Units/Ml 1 Ml Vial SC 10/24/24 19:59 5,000 units
Q12 YOMI Administration
Lorazepam 1 mg 09/27/24 15:00
Lorazepam 1 Mg Tablet PO 10/25/24 14:59
Q2HPRN PRN
MSAS 5-7
Lorazepam 1 mg 09/27/24 15:00
Lorazepam 2 Mg/Ml Vial Msas 8-11 IV 10/25/24 14:59
Q1HPRN PRN
MSAS 8-11
Lorazepam 2 mg 09/27/24 15:00 09/29/24 15:36
Lorazepam 2 Mg/Ml Vial Msas > 11 IV 10/25/24 14:59 2 mg
Q1HPRN PRN Administration
MSAS > 11
Melatonin 5 mg 09/29/24 22:00
Melatonin 5 Mg Tablet PO 10/27/24 21:59
HS YOMI
Olanzapine 2.5 mg 09/29/24 22:00
Olanzapine 2.5 Mg Tablet PO 10/27/24 21:59
HS YOMI
Pantoprazole Sodium 40 mg 09/30/24 08:00
Pantoprazole Sodium 40 Mg/10 Ml Vial IV 10/28/24 07:59
DAILY YOMI
Potassium Chloride 20 meq 09/29/24 20:00
Potassium Chloride 20 Meq Extended Release Tablet PO 10/27/24 19:59
BID YOMI
Sodium Chloride 0 flush 09/26/24 16:00
Sodium Chloride 0.9% (Flush) Syringe IV 10/24/24 15:59
PER PROTOCOL YOMI
Sodium Chloride 0 ml 09/27/24 15:00 09/29/24 15:36
Sodium Chloride 0.9% (Preservative Free) 10 Ml Vial IV 10/25/24 14:59 1 ml
PRN PRN Administration
IV Lorazepam dilution
Protocol
Sodium Chloride 10 ml 09/30/24 08:00
Sodium Chloride 0.9% (Preservative Free) 10 Ml Vial IV 10/28/24 07:59
DAILY YOMI
Thiamine HCl 200 mg 09/28/24 12:00 09/29/24 09:09
Thiamine (100 Mg/Ml) 2 Ml Vial IV 10/26/24 11:59 200 mg
DAILY YOMI Administration
Home Medications
�Medication �Instructions �Recorded
No Meds [No Current Medications] 09/26/24
Vital Signs and Labs
-
Vital Signs and Labs:
Vital Signs
Temp Pulse Resp BP Pulse Ox
36.4 C 72 15 97/70 97
09/29/24 16:22 09/29/24 18:15 09/29/24 18:15 09/29/24 18:00 09/29/24 18:15
Lab Results
09/29/24 06:17
09/29/24 06:17
Sodium 140 mmol/L (135-145) 09/29/24 06:17
Potassium 3.4 mmol/L (3.5-5.1) L 09/29/24 06:17
BUN < 2 mg/dl (7-17) L 09/29/24 06:17
Glucose 96 mg/dl (70-99) 09/29/24 06:17
Calcium 8.0 mg/dl (8.4-10.2) L 09/29/24 06:17
Phosphorus 2.0 mg/dl (2.5-4.5) L 09/29/24 06:17
Vitamin B12 > 1000 pg/ml (239931) H 09/26/24 07:38
Ur Buprenorphine Negative (Negative) 09/26/24 06:26
Medications
-
Medications:
Generic Name Dose Route Start Last Admin
Trade Name Freq PRN Reason Stop Dose Admin
Folic Acid 1 mg 09/28/24 12:00 09/29/24 09:08
Folic Acid 1 Mg Tablet PO 10/26/24 11:59 1 mg
DAILY YOMI Administration
Heparin Sodium 5,000 units 09/26/24 20:00 09/29/24 09:10
Heparin 5,000 Units/Ml 1 Ml Vial SC 10/24/24 19:59 5,000 units
Q12 YOMI Administration
Lorazepam 1 mg 09/27/24 15:00
Lorazepam 1 Mg Tablet PO 10/25/24 14:59
Q2HPRN PRN
MSAS 5-7
Lorazepam 1 mg 09/27/24 15:00
Lorazepam 2 Mg/Ml Vial Msas 8-11 IV 10/25/24 14:59
Q1HPRN PRN
MSAS 8-11
Lorazepam 2 mg 09/27/24 15:00 09/29/24 15:36
Lorazepam 2 Mg/Ml Vial Msas > 11 IV 10/25/24 14:59 2 mg
Q1HPRN PRN Administration
MSAS > 11
Melatonin 5 mg 09/29/24 22:00
Melatonin 5 Mg Tablet PO 10/27/24 21:59
HS YOMI
Olanzapine 2.5 mg 09/29/24 22:00
Olanzapine 2.5 Mg Tablet PO 10/27/24 21:59
HS YOMI
Pantoprazole Sodium 40 mg 09/30/24 08:00
Pantoprazole Sodium 40 Mg/10 Ml Vial IV 10/28/24 07:59
DAILY YOMI
Potassium Chloride 20 meq 09/29/24 20:00
Potassium Chloride 20 Meq Extended Release Tablet PO 10/27/24 19:59
BID YOMI
Sodium Chloride 0 flush 09/26/24 16:00
Sodium Chloride 0.9% (Flush) Syringe IV 10/24/24 15:59
PER PROTOCOL YOMI
Sodium Chloride 0 ml 09/27/24 15:00 09/29/24 15:36
Sodium Chloride 0.9% (Preservative Free) 10 Ml Vial IV 10/25/24 14:59 1 ml
PRN PRN Administration
IV Lorazepam dilution
Protocol
Sodium Chloride 10 ml 09/30/24 08:00
Sodium Chloride 0.9% (Preservative Free) 10 Ml Vial IV 10/28/24 07:59
DAILY YOMI
Thiamine HCl 200 mg 09/28/24 12:00 09/29/24 09:09
Thiamine (100 Mg/Ml) 2 Ml Vial IV 10/26/24 11:59 200 mg
DAILY YOMI Administration
Home Medications
-
Home Medications
No Meds [No Current Medications] 09/26/24
[2024-09-29] MEDS: CARAFATE PO (18:26)
[2024-09-29] MEDS: NEUTRA-PHOS POWDER PACKET PO (18:26)
[2024-09-29 19:08] LABS: Phosphorus 1.9 mg/dl (2.5-4.5)
[2024-09-29] MEDS: KEPPRA 1000 MG IV (19:09)
[2024-09-29] MEDS: KCL PO (19:47)
[2024-09-29] MEDS: POTASSIUM PHOSPHATE 259.0909 MEQ IV (20:41)
[2024-09-29] MEDS: KEPPRA 500 MG IV (21:11)
[2024-09-29] MEDS: ZYPREXA PO (21:18)
[2024-09-29] MEDS: MELATONIN PO (21:18)
[2024-09-29 22:49] LABS: Ammonia < 9 umol/L (9-30)
[2024-09-30] VITALS (8 sets, daily range): BP systolic 93–111; BP diastolic 66–82
[2024-09-30] MEDS: ZYPREXA 2.5 MG PO (00:33)
--- NOTE | 2024-09-30 00:40 | PTCARENOTE ---
Addendum entered by Yesenia Lara 09/30/24 02:42:
pt does state hx of seizures, happening 'since she was a kid', but denies being on any medication for them because they happen infrequently.
Original Note:
Pt woke up from a sound sleep, set of bed alarm, confused, disoriented, but redirectable. This RN informed pt that she was moved to this unit following a seizure, pt receptive to reorientation. Stood at bedside to use BSC, void 300ml, urine sent to
lab per orders. Pt discussed POC with her mom over the phone. Oriented to call calixto system, bed alarm in place for pt safety. VSS
[2024-09-30 01:09] LABS: Urine Albumin Negative (Neg - Trace); Urine Bilirubin Negative (Negative); Urine Character Clear (Clear); Urine Color Yellow; Urine Glucose Negative (Negative); Urine Ketone Negative (Negative); Urine Leukocyte 1+ (Negative); Urine Nitrite Negative (Negative); Urine Occult Blood Negative (Negative); Urine Urobilinogen Negative (Neg - 1+)
[2024-09-30 01:29] LABS: Amphetamines Negative (Negative); Barbiturates Negative (Negative); Benzodiazepines Positive (Negative); Buprenorphine Negative (Negative); Cocaine Negative (Negative); Marijuana Positive (Negative); Methadone Negative (Negative); Methamphetamines Negative (Negative); Opiates Negative (Negative); Phencyclidine Negative (Negative); Tricyclic Antidepressants Negative (Negative)
[2024-09-30 02:20] LABS: Fentanyl, Urine Negative (Negative)
[2024-09-30 02:47] LABS: Urine Amorphous Seen; Urine Bacteria Many (Negative); Urine Mucus Moderate; Urine Squamous Cell >30 /LPF (Few); Urine White Cell >100 /HPF (0-5)
[2024-09-30 02:48] LABS: Urine Hyaline Cast >15 /LPF (0-2); Urine Urothelial Cell >30 /LPF (FEW)
[2024-09-30 06:14] LABS: Hematocrit 25.4 % (37.0-47.0); Hemoglobin 8.8 g/dL (12.0-16.0); Mean Corp Hgb Conc. 34.6 g/dL (33.0-37.0); Mean Corpuscular Hgb 36.7 pg (27.0-31.0); Mean Corpuscular Volume 105.8 fL (81.0-99.0); Mean Platelet Volume 10.5 fL (7.4-10.4); Platelet Count 179 10^3/uL (130-400); Red Cell Dist. Width 12.1 % (11.5-14.5); White Blood Cell Count 7.3 10^3/uL (4.8-10.8)
[2024-09-30 06:31] LABS: Blood Urea Nitrogen < 2 mg/dl (7-17); Calcium 8.1 mg/dl (8.4-10.2); Carbon Dioxide 27 mmol/L (22-30); Chloride 107 mmol/L (98-107); Estimated Creatinine Clearance 98 ml/min; Glucose 106 mg/dl (70-99); Magnesium 2.2 mg/dl (1.6-2.3); Phosphorus 4.7 mg/dl (2.5-4.5); Potassium 3.9 mmol/L (3.5-5.1); Sodium 138 mmol/L (135-145); eGFR > 60.00
--- NOTE | 2024-09-30 08:45 | W.PN.HOSP.TC ---
Today's Communication/Plan
-
Brain MRI
LFTs
Assessment / Plan
Assessment / Plan
Gen-AAOx3, NAD
HEENT-NC, AT, anicteric, clear oral mm
Neck-supple
CV-reg, no M, +S1/S2
Lungs-clear B/L
Abd-soft, nondistended, mild tenderness diffusely
Ext-no edema
Musculoskeletal-no cyanosis, clubbing
Skin-warm and dry
Neuro-grossly non-focal
Psych-calm, cooperative
Alcohol withdrawal seizure -09/29. Reportedly it broke prior to Ativan administration. Neurology consulted, brain MRI ordered. Keppra IV started. Continue IV Ativan as needed seizure.
Acute psychosis
--Hearing voices but states they are making noises. No evidence that these voices are telling her to harm herself or not to eat
--No history of psychiatric illnesses
-Schizophrenia versus bipolar. Psychiatry following. Recommended Zyprexa Ativan. 1:1 ordered.
Acute pancreatitis - suspected secondary to alcohol use. Mild tenderness on exam. Pancreas is normal on CT. Low-fat diet.
Acute hepatitis -suspect alcohol induced. Recheck LFTs.
Alcohol use disorder -continue withdrawal protocol. Continue thiamine and folic acid.
Hypophosphatemia -resolved.
Vomiting with reports of hematemesis -resolved.
Acute diarrhea -check norovirus PCR. Cryptosporidium/Giardia negative. C. difficile antigen positive, toxin negative. Stool culture pending. She states boyfriend also has a diarrheal illness. Stools are becoming formed.
Acute macrocytic anemia -hemoglobin slowly trending down, 8.8 today. Baseline unknown. B12 and folic acid are normal. No evidence of bleeding.
Bulimia as BMI is less than 18.5, has intentionally not been eating
-No history of eating disorders
-Concern for refeeding syndrome
-Monitor electrolytes daily including phosphorus level
-Encourage p.o. intake as tolerated
Hypokalemia -resolved.
Hypomagnesemia -resolved.
Hyponatremia -resolved.
Moderate protein/calorie malnutrition
Malnutrition induced amenorrhea -last menses was more than a year ago.
Full code
Anticipated Discharge: > 48 hours
Subjective/Interval History
-
Date of Service: September 30, 2024
Patient seen and examined. No complaints.
Objective Data
-
Labs:
Laboratory Results
09/30/24
05:43
WBC 7.3
Hgb 8.8 L
Hct 25.4 L
Plt Count 179
Sodium 138
Potassium 3.9
Chloride 107
Carbon Dioxide 27
BUN < 2 L
Creatinine 0.4 L
Glucose 106 H
Calcium 8.1 L
Vital Signs:
Vital Signs
Temp Pulse Resp BP Pulse Ox
98.1 F 65 15 107/66 97
09/30/24 07:54 09/30/24 06:00 09/30/24 06:00 09/30/24 04:00 09/30/24 06:00
I&O
09/29/24 09/30/24 10/01/24
06:59 06:59 06:59
Intake Total 2835 / 2835 770 / 770
Output Total 800 / 800
Balance 2835 / 2835 -30 / -30
Review of Systems
-
History Source: Patient
All other systems: Reviewed and negative
[2024-09-30] MEDS: KCL 20 MEQ PO ×2 (09:09→20:08)
[2024-09-30] MEDS: NICODERM TRANSDERMAL 14 MG TRANSDERM (09:09)
[2024-09-30] MEDS: FOLVITE 1 MG PO (09:09)
[2024-09-30] MEDS: THIAMINE INJECTION 200 MG IV (09:10)
[2024-09-30] MEDS: PROTONIX IV 40 MG IV (09:10)
[2024-09-30] MEDS: HEPARIN 5000 UNITS SC ×2 (09:10→20:09)
[2024-09-30] MEDS: KEPPRA 500 MG IV ×2 (09:10→20:09)
[2024-09-30] MEDS: NSS (PRESERVATIVE FREE) 10 ML IV (09:11)
[2024-09-30 10:00] LABS: ALT (SGPT) 32 U/L (0-35); AST (SGOT) 64 U/L (14-36); Albumin 2.6 g/dl (3.5-5.0); Alkaline Phosphatase 124 U/L (38-126); Total Bilirubin 0.4 mg/dl (0.2-1.3); Total Protein 5.1 g/dl (6.3-8.2)
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
[2024-09-30] MEDS: ATIVAN 1 MG PO (12:44)
--- NOTE | 2024-09-30 16:11 | EEGC.RPT ---
Continuous EEG Report
Recording
Start Date of Data Reviewed: 09/30/24
Done with Video Recording: Yes
Report
TECHNICAL REMARKS:��This is a technically satisfactory eighteen channel record employing 21 disc electrodes applied according to a measured international 10-20 electrode placement system.��There were no significant technical difficulties.��The study
was done on a [employer] System.
�
CLINICAL HISTORY:�This is a 34-year-old woman with seizure. This study was requested to look for epileptiform activity.
MEDICATIONS: Lorazepam, Keppra
STUDY DURATION: 30 min, 50 sec
�
REPORT: �At the onset of the EEG, the patient is awake. The background activity consists of 9-9.5 Hz, persistent, posteriorly dominant, moderate in amplitude, symmetric, and rhythmic activity that is reactive to eye-opening with admixed 10-15
microvolts delta activity.� Anteriorly, it consists of a mixture of symmetric and rhythmic 5-10 microvolts, 15-20 beta activity, as well as central 6-7 Hz 10-20 microvolts theta activity. Intermittent generalized 5-6 Hz 10-20 microvolts activity
lasting for 1-1.5 seconds during wakefulness is present. Stepwise intermittent photic stimulation (1-31 Hz) did not induce any additional abnormalities. Drowsiness is characterized by low amplitude mixed frequency activity, decreased eye blinking,
and muscle artifact.
�
IMPRESSION: �This is an abnormal awake and drowsy EEG due to a mild generalized slowing. This finding indicates a mild encephalopathy that is not specific to etiology.� No epileptiform activity was seen.� If the clinical picture warrants, a
sleep-deprived awake and sleep record may be helpful.
--- NOTE | 2024-09-30 16:56 | PTCARENOTE ---
Pt presents as assessed. Aox3. Denies hallucinations. OOB to chair. MSAS protocol followed. Parents at bedside, all updated on plan of care. Ringing appropriately, call calixto within reach.
--- NOTE | 2024-09-30 17:24 | CM ---
Patient with Hx alcohol use disorder, who had Alcohol withdrawal seizure 09/29. Seen by Psych. EEG today. Room air. Receiving IV Keppra, IV Ativan prn. Per nurse: Aox3, Denies hallucinations, MSAS.
Messages from Dr Jewell; She is unlikely to accept inpatient treatment, patient likely to go home with outpatient psych referral.
As per prior CM notes, patient has no PCP - will need resident clinic info.
Plan provide [facility]idency [facility] info to patient.
Plan home.
[2024-09-30] MEDS: MELATONIN 5 MG PO (23:03)
[2024-10-01] VITALS (8 sets, daily range): BP systolic 89–106; BP diastolic 58–70
--- NOTE | 2024-10-01 05:28 | PTCARENOTE ---
Pt oriented, appropriate. MSAS as documented. Pt ambulating frequently throughout room. VSS. Agreeable to POC at this time. Call calixto within reach.
[2024-10-01 05:57] LABS: Hematocrit 26.2 % (37.0-47.0); Hemoglobin 8.8 g/dL (12.0-16.0); Mean Corp Hgb Conc. 33.6 g/dL (33.0-37.0); Mean Corpuscular Hgb 36.4 pg (27.0-31.0); Mean Corpuscular Volume 108.3 fL (81.0-99.0); Mean Platelet Volume 10.2 fL (7.4-10.4); Platelet Count 197 10^3/uL (130-400); Red Blood Cell Count 2.42 10^6/uL (4.20-5.40); Red Cell Dist. Width 12.4 % (11.5-14.5); White Blood Cell Count 7.4 10^3/uL (4.8-10.8)
[2024-10-01 06:24] LABS: Blood Urea Nitrogen < 2 mg/dl (7-17); Calcium 8.4 mg/dl (8.4-10.2); Carbon Dioxide 25 mmol/L (22-30); Chloride 107 mmol/L (98-107); Estimated Creatinine Clearance 98 ml/min; Glucose 113 mg/dl (70-99); Magnesium 1.9 mg/dl (1.6-2.3); Phosphorus 4.8 mg/dl (2.5-4.5); Potassium 4.4 mmol/L (3.5-5.1); Sodium 139 mmol/L (135-145); eGFR > 60.00
--- NOTE | 2024-10-01 08:03 | W.PN.HOSP.TC ---
Addendum entered and electronically signed by Susana Cali MD 10/02/24 14:06:
I personally performed a history and physical exam of the patient and discussed management with the resident. I reviewed the resident's note and agree with the documented findings and plan of care HPI/CC.
A/P:
# Alcohol withdrawal seizure 09/29.
Reportedly it broke prior to Ativan administration.
Neurology consulted
brain MRI no evidence of acute intracranial abnormality.
Off Keppra per Neuro
# Acute auditory hallucination/ psychosis, resolved
Pt was hearing voices/noises. No evidence that these voices are telling her to harm herself or not to eat
No history of psychiatric illnesses
Psychiatry following.
Pt was started with Zyprexa/Ativan, now off per psych.
Off 1:1 per psych
# Acute pancreatitis suspected secondary to alcohol use.
Pancreas is normal on CT.
Patient denies to further epigastric pain
Tolerating low-fat diet, liberalized to regular per patient request
# Acute hepatitis, suspect alcohol induced.
Follow LFTs.
# Alcohol use disorder
# Hypophosphatemia, resolved.
# Vomiting with reports of hematemesis, resolved.
# Acute diarrhea, resolved
norovirus neg, Cryptosporidium/Giardia negative. C. difficile antigen positive, toxin negative. Stool culture negative
# Acute macrocytic anemia
hemoglobin remained stable at 8.8 today. Baseline unknown.
B12 and folic acid are normal. No evidence of bleeding.
# Bulimia as BMI is less than 18.5, has intentionally not been eating
# Moderate protein/calorie malnutrition
# Malnutrition induced amenorrhea -last menses was more than a year ago.
No history of eating disorders
Concern for refeeding syndrome
Encourage p.o. intake as tolerated
# Hypokalemia -resolved.
# Hypomagnesemia -resolved.
# Hyponatremia -resolved.
# High prolactin level at [address] head and MRI brain unrevealing, negative for pituitary adenoma
Recommend outpatient Endo eval
Full code
Original Note:
Today's Communication/Plan
-
see A/P
Assessment / Plan
Assessment / Plan
A/P:
# Alcohol withdrawal seizure 09/29.
Reportedly it broke prior to Ativan administration.
Neurology consulted
brain MRI ordered.
Keppra IV started.
Continue IV Ativan as needed seizure.
# Acute auditory hallucination/ psychosis
Hearing voices but states they are making noises. No evidence that these voices are telling her to harm herself or not to eat
No history of psychiatric illnesses
Psychiatry following.
Recommended Zyprexa, Ativan.
1:1 ordered.
# Acute pancreatitis - suspected secondary to alcohol use.
Pancreas is normal on CT.
Tolerating low-fat diet.
# Acute hepatitis, suspect alcohol induced.
Follow LFTs.
# Alcohol use disorder
continue withdrawal protocol. Continue thiamine and folic acid.
# Hypophosphatemia, resolved.
# Vomiting with reports of hematemesis, resolved.
# Acute diarrhea
norovirus neg, Cryptosporidium/Giardia negative.
C. difficile antigen positive, toxin negative.
Stool culture pending.
She states boyfriend also has a diarrheal illness. Stools are becoming formed.
# Acute macrocytic anemia
hemoglobin slowly trended down, stable at 8.8 today. Baseline unknown.
B12 and folic acid are normal. No evidence of bleeding.
# Bulimia as BMI is less than 18.5, has intentionally not been eating
# Moderate protein/calorie malnutrition
# Malnutrition induced amenorrhea -last menses was more than a year ago.
No history of eating disorders
Concern for refeeding syndrome
Monitor electrolytes daily including phosphorus level
Encourage p.o. intake as tolerated
# Hypokalemia -resolved.
# Hypomagnesemia -resolved.
# Hyponatremia -resolved.
Full code
Anticipated Discharge: > 48 hours
Subjective/Interval History
-
Date of Service: October 01, 2024
Objective Data
-
Labs:
Laboratory Results
10/01/24
05:41
WBC 7.4
Hgb 8.8 L
Hct 26.2 L
Plt Count 197
Sodium 139
Potassium 4.4
Chloride 107
Carbon Dioxide 25
BUN < 2 L
Creatinine 0.5 L
Glucose 113 H
Calcium 8.4
Vital Signs:
Vital Signs
Temp Pulse Resp BP Pulse Ox
36.8 C 73 15 100/70 99
10/01/24 06:07 10/01/24 06:00 10/01/24 06:00 10/01/24 05:44 09/30/24 22:00
I&O
09/30/24 10/01/24 10/02/24
06:59 06:59 06:59
Intake Total 770 / 770 480 / 480
Output Total 800 / 800
Balance -30 / -30 480 / 480
Review of Systems
-
All other systems: Reviewed and negative
Physical Exam
-
General: Well Developed, Well Nourished, No Apparent Distress, Comfortable and Conversant; Negative Respiratory Distress
HEENT: Normocephalic, Atraumatic, Nose Appears Normal and Ears Appear Normal; Negative Oxygen
Respiratory: Clear to Auscultation and Non Labored Respirations; Negative Accessory Resp Muscle Use
Cardiac: Regular Rhythm and S1/S2
GI: Soft, Nontender, Nondistended and Normal Bowel Sounds
Skin: Warm and Dry
Neuro: Awake and Alert
Psych: Calm and Intact Judgement/Insight
Data Reviewed
-
Labs: Labs Reviewed by me
[2024-10-01] MEDS: FOLVITE 1 MG PO (08:38)
[2024-10-01] MEDS: KCL 20 MEQ PO ×2 (08:38→20:08)
[2024-10-01] MEDS: HEPARIN 5000 UNITS SC ×2 (08:38→20:08)
[2024-10-01] MEDS: PROTONIX IV 40 MG IV (08:39)
[2024-10-01] MEDS: THIAMINE INJECTION 200 MG IV (08:39)
[2024-10-01] MEDS: NICODERM TRANSDERMAL 14 MG TRANSDERM (08:39)
[2024-10-01] MEDS: NSS (PRESERVATIVE FREE) 10 ML IV (08:39)
[2024-10-01] MEDS: KEPPRA 500 MG IV ×2 (08:40→20:08)
--- NOTE | 2024-10-01 12:42 | PTCARENOTE ---
MR I completed . pt off monitor for MRI. pt placed back on tele monitor box so she can ambulate. enhanced precautions removed per discussion with Cherelle Rogers/ infection control as pt is negative for norovirus and c diff toxin.
--- NOTE | 2024-10-01 16:01 | CM ---
account relationship manager reviewed patient's chart and met with patient and mother at bedside. Patient is ambulating in room, per patient plan is to return to home with significant other or mother, patient has declined the need for follow up with [facility].
Plan; Home with boyfriend or mother when stable.
--- NOTE | 2024-10-01 16:08 | W.PN.UPDATE ---
Update Note
Progress Note Update
patient seen chart reviewed. spoke with nursing. patient has continued to progress vis a vis freedom from psychosis. there has been no reemergence or paranoia or delusions since admit. in reviewing the chart i did note elevated prolactin. i
explained to patient and mom that this should be addressed and why it should be addressed. . i learned patient has not had period in two years. she should seek assessment from condenser winder at discharge. i attempted to convince patient of the need for
complete sobriety from etoh but i did not succeed. she maintains she can drink responsibly. that will not be easy. psych will sign off at this point. do not see need for other psychotropic medications at this time.
patient also asked if her diet can be liberalized. she is on low fat diet. will text dr lewis.
--- NOTE | 2024-10-01 17:10 | PTCARENOTE ---
nicotine patch replaced x 2. first after mri as patch was removed for test. second patch fell off after pt showered.
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
[2024-10-01] MEDS: MELATONIN 5 MG PO (21:44)
--- NOTE | 2024-10-01 21:55 | PTCARENOTE ---
Patient is Aox3. MSAS as documented. Patient ambulating throughout room. VSS. Assessment as documented. Call calixto within in reach and ringing appropriately. Boyfriend at bedside.
[2024-10-02 03:54] VITALS: BP 109/66
[2024-10-02 05:00] LABS: ALT (SGPT) 29 U/L (0-35); AST (SGOT) 46 U/L (14-36); Albumin 2.8 g/dl (3.5-5.0); Alkaline Phosphatase 123 U/L (38-126); Blood Urea Nitrogen 3 mg/dl (7-17); Calcium 8.4 mg/dl (8.4-10.2); Carbon Dioxide 24 mmol/L (22-30); Chloride 109 mmol/L (98-107); Estimated Creatinine Clearance 98 ml/min; Glucose 92 mg/dl (70-99); Lipase 1640 U/L (23-300); Magnesium 1.7 mg/dl (1.6-2.3); Potassium 4.5 mmol/L (3.5-5.1); Sodium 141 mmol/L (135-145); Total Bilirubin 0.4 mg/dl (0.2-1.3); Total Protein 5.5 g/dl (6.3-8.2); eGFR > 60.00
[2024-10-02] MEDS: KCL 20 MEQ PO (08:49)
[2024-10-02] MEDS: NICODERM TRANSDERMAL 14 MG TRANSDERM (08:49)
[2024-10-02] MEDS: HEPARIN 5000 UNITS SC (08:49)
[2024-10-02] MEDS: PROTONIX IV 40 MG IV (08:49)
[2024-10-02] MEDS: NSS (PRESERVATIVE FREE) 10 ML IV (08:49)
[2024-10-02] MEDS: THIAMINE INJECTION 200 MG IV (08:49)
[2024-10-02] MEDS: FOLVITE 1 MG PO (08:49)
--- NOTE | 2024-10-02 09:00 | PTCARENOTE ---
Patient received from shift supervisor melting. Patient resting comfortably on the couch. No events noted overnight. No complaints of pain. MSAS this AM was 3 for some tremors and increased activity. Currently on Room Air. No fluids running. No test
scheduled for today at this time. Discharge today? Call calixto in reach.
[2024-10-02 09:05] VITALS: BP 100/40
--- NOTE | 2024-10-02 12:05 | W.PN.HOSP.TC ---
Addendum entered and electronically signed by Susana Cali MD 10/02/24 22:33:
I personally performed a history and physical exam of the patient and discussed management with the resident. I reviewed the resident's note and agree with the documented findings and plan of care HPI/CC.
Keppra discontinued by Neuro.
No psychotropic per Psych.
Cleared for discharge with clinical stability.
Total DC time 40 min
Original Note:
Today's Communication/Plan
-
Plan discharge
Assessment / Plan
Assessment / Plan
Impression
34-year-old female with no significant past medical history presents with evidence of acute psychosis reportedly having visual and auditory hallucinations. Patient also have not eaten well for past 3 to 4 weeks with significant amount of weight
loss, secondary amenorrhea for last 2 years, high prolactin levels, brain MRI within normal limits. No history of psychiatric illness, no suicidal or homicidal ideations.
ASSESSMENT/PLAN
# Alcohol withdrawal seizure 09/29.
CT head, MRI brain and EEG within normal limits
As per recommendations of neuro- decided to discontinue Keppra
Continue Ativan 2 mg IV as needed for GTC lasting over 2 minutes
# Acute auditory hallucination/ psychosis
Patient reports no hallucinations at this time
No history of psychiatric illnesses
History of alcohol addiction, opioid addiction in remission
Psych consult appreciated -recommended no psychotropic medications at this time
# Acute pancreatitis - suspected secondary to alcohol use.
Patient reports no abdominal pain,Pancreas looks normal on CT abdomen
Right initiate discussion on alcohol use, patient adamant that she can be a responsible drink
# Alcohol use disorder
continue withdrawal protocol. Continue thiamine and folic acid.
Patient convinced that she can drink responsibly
Not willing to address this issue at this time
# Hypophosphatemia, resolved.
# Vomiting with reports of hematemesis, resolved.
# Acute diarrhea
norovirus neg, Cryptosporidium/Giardia negative.
C. difficile antigen positive, toxin negative.
Negative for norovirus
She states boyfriend also has a diarrheal illness. Stools are becoming formed.
# Acute macrocytic anemia
hemoglobin slowly trended down, stable at 8.8 today. Baseline unknown.
B12 and folic acid are normal. No evidence of bleeding.
# Acute hepatitis, suspect alcohol induced. Follow LFTs.
# Bulimia as BMI is less than 18.5, has intentionally not been eating
# Moderate protein/calorie malnutrition
# Malnutrition induced amenorrhea -last menses was more than a year ago.
No history of eating disorders
Concern for refeeding syndrome
Monitor electrolytes daily including phosphorus level
# Hypokalemia -resolved.
# Hypomagnesemia -resolved.
# Hyponatremia -resolved.
Full code
Anticipated Discharge: Today
Subjective/Interval History
-
Date of Service: October 02, 2024
Patient says she feels fine and has more energy, sitting on the bed comfortably
Objective Data
-
Labs:
Laboratory Results
10/02/24
04:10
Sodium 141
Potassium 4.5
Chloride 109 H
Carbon Dioxide 24
BUN 3 L
Creatinine 0.5 L
Glucose 92
Calcium 8.4
Total Bilirubin 0.4
AST 46 H
ALT 29
Alkaline Phosphatase 123
Vital Signs:
Vital Signs
Temp Pulse Resp BP Pulse Ox
99.1 F 76 23 109/66 98
10/02/24 11:55 10/02/24 06:00 10/01/24 08:01 10/02/24 03:54 10/01/24 21:35
I&O
10/01/24 10/02/24 10/03/24
06:59 06:59 06:59
Intake Total 480 / 480 240 / 240
Balance 480 / 480 240 / 240
Review of Systems
-
All other systems: Reviewed and negative
Physical Exam
-
General: Well Developed, Well Nourished, No Apparent Distress and Comfortable
HEENT: Normocephalic, Atraumatic and Moist Mucous Membranes
Respiratory: Clear to Auscultation
Cardiac: Regular Rhythm and S1/S2
GI: Soft, Nontender and Normal Bowel Sounds
Musculoskeletal: No Clubbing, No Cyanosis and No Edema
Skin: Warm and Dry
Neuro: Awake and Alert
Psych: Intact Judgement/Insight
--- NOTE | 2024-10-02 16:35 | CM ---
Patient with Hx alcohol use disorder, who had Alcohol withdrawal seizure 09/29, acute psychosis. Tox screen noted. Seen by Psych. Room air. MSAS per nursing.
Met with patient and her mother; patient agitated and complaining that time spent in hospital was a waste of time as she did not get the referral appointments made for her. Advised patient will request MDs provide referrals and patient will need to
make her own appointments.
She stated she does not want to go to [facility] that [facility] CM told her about for quick follow up appointment. CM provided PCP list to her today.
Patient also requested referrals for for endocrinology, neurology and GI doctors---> message sent to Resident Julian Eubanks who will provide referrals in d/c instructions.
Patient also requested referral for outpatient Psych follow-up---> message sent to Dr Jewell who responded saying she advised patient to follow up at [facility]. CM attempted to provide [facility] address and phone # to patient who
declined to take the information.
Mother will provide transport home.
Plan home today.
--- NOTE | 2024-10-02 16:39 | W.DCSUMMARY ---
Documented by User: Julian Eubanks MD, Resident 10/02/24 16:59
Discharge Summary
Discharge Data
Date of Admission: 09/26/24
Date of Discharge: 10/02/24
-
Pending Results: No
Hospital Course
Discharging Physician :
Susana Cali, Julian Eubanks
Disposition :
Home
Primary care physician :
None
Principal Discharge diagnosis :
Acute pancreatitis secondary to alcohol use(resolved)
Acute Psychosis(resolved)
Acute diarrhea(resolved)
Alcohol use disorder(Patient aware)
Chronic Discharge diagnosis :
None
Hospital Course :
Patient is a 34-year-old female, with no significant past medical history presented with evidence of acute psychosis, symptomatology reported by mother and herself as hallucinations visual and auditory along with not eating for past 3 to 4 weeks
with significant amount of weight loss. States that she has been drinking alcohol and has been under a lot of stress, no personal or family history of psychiatric illness, not suicidal or homicidal during her stay in the hospital.
1.Acute Pancreatitis
Patient did say that she had episodes of vomiting that contained blood. GI was consulted who suggested as acute pancreatitis likely due to alcohol abuse. Conservative management was advised, as per CT scan of abdomen the patient's pancreas looked
normal, her triglyceride levels were within normal limits and viral hepatitis serologies were negative. Acute pancreatitis was managed conservatively and outpatient GI follow-up was arranged with Dr. Rosas.
2.Acute Psychosis/Substance use disorder
Psychiatry was consulted considering patient's hallucinations and delusions, started on Zyprexa 5 mg and Ativan on as-needed basis. The LFTs showed picture of alcohol use along with elevated lipase and pancreatitis. Patient was started on thiamine
and folic acid.
On further evaluation by psych, patient admitted to cannabis use disorder, alcohol abuse, and opioid use disorder with the opioid use disorder in remission. She is an active smoker so nicotine patch was provided. Patient was repeatedly involved in
discussions about alcohol use to which the patient responded adamantly that she was able to drink responsibly. Olanzapine was discontinued as patient's acute psychosis resolved. Patient to get further help regarding her substance use on outpatient
basis.
3.Secondary Amenorrhea
Patient had not had a menstrual period in the last 2 years, most likely secondary to low BMI and disturbed HPO axis. Prolactin level was elevated to 47.8 on this admission, MRI brain done, revealed no pituitary mass. Patient to follow-up with the
primary care physician and director broadcast to do further workup for elevated prolactin
4.Seizure
Patient had a seizure activity, on September 29, 2024, stat CT head was done which was normal, neurology consulted on further workup EEG and MRI brain was within normal limits.Patient was initially started on Keppra but she had no further seizures so
it was discontinued. Patient to have further workup on outpatient basis with neurology
Important imaging findings :
Abdomen pelvis CT 09/27/2024
IMPRESSION:
1. SEVERE ACUTE PANCOLITIS. Diagnostic possibilities are (1) acute infectious colitis or (2) acute ulcerative colitis.
2. SEVERE DIFFUSE HEPATIC STEATOSIS and moderate hepatomegaly.
3. Minimal peritoneal fluid in the pelvis.
Head CT 09/29/2024
IMPRESSION:
There are no focal or acute intracranial abnormalities.
There is mild-moderate diffuse cortical and cerebellar atrophy
Brain MRI 10/01/2024
IMPRESSION: No evidence of acute intracranial abnormality.
Mild prominence of subarachnoid cisterns superior to both cerebral hemispheres, suggesting mild cerebral atrophy
Discharge Plan
-
Patient Disposition: Home (Routine Discharge)
Discharge Diagnosis/Procedures: Acute pancreatitis secondary to alcohol use(resolved)
Acute Psychosis(resolved)
Acute diarrhea(resolved)
Alcohol use disorder(Patient aware)
Condition: Fair
Diet: Regular
Activity: As tolerated
Driving Restrictions: No driving for 6 months as per Neuro
Bathing Restrictions: None
Blood Work: BMP in one week
Activity Restrictions/Additional Instructions:
Follow up with primary care physician/director broadcast for elevated prolactin level(47.8),MRI brain within normal limits on this admission
Referrals:
Radha Rosas MD [Active] - (4-8 wks for pancreatitis, GERD and abnormal CT scan)
Ofelia Jerez MD [Consulting Staff] - in one week
Laverne Lozano MD [Active] -
NONE,* [Family Provider] - in less than 1 week ([facility] -To make an appointment call [phone])
Additional Discharge Medication Instructions: Use OTC multivitamins,one tablet daily
Prescriptions:
New
folic acid 1 mg Tablet
1 mg PO DAILY 30 Days Qty: 30 0RF
melatonin 5 mg Tablet
5 mg PO HS 30 Days Qty: 30 0RF
thiamine HCl (vitamin B1) 50 mg tablet
50 mg PO DAILY Qty: 30 0RF
Discharge Orders:
Discharge Patient (As Directed); Ordered 10/02/24
Ordered By: Julian Eubanks
Discharge Date and Time
Discharge Date/Time: 10/02/24 18:00
Print Language: CAPE VERDEAN

Documented by User: Susana Cali MD 10/02/24 22:31
Discharge Summary
Discharge Data
Date of Admission: 09/26/24
Date of Discharge: 10/02/24
Hospital Course
Discharging Physician :
Susana Cali Sandal Shahzadi
Disposition :
Home
Primary care physician :
None
Principal Discharge diagnosis :
Acute pancreatitis secondary to alcohol use(resolved)
Acute Psychosis(resolved)
Acute diarrhea(resolved)
Alcohol use disorder(Patient aware)
Chronic Discharge diagnosis :
None
Hospital Course :
Patient is a 34-year-old female, with no significant past medical history presented with acute psychosis, visual and auditory hallucinations and weight loss over 3 to 4 weeks. Patient endorsed to drinking alcohol and has been under a lot of stress.
1.Acute Pancreatitis due to alcohol abuse.
Her diet was eventually advanced to low fat then regular (per her request) without further abdominal pain.
2.Acute Psychosis/Substance use disorder
Psychiatry was consulted. She was initially started on Zyprexa 5 mg and Ativan on as-needed basis. Both were subsequently discontinued.
She has been counselled on alcohol cessation.
3.Secondary Amenorrhea
Patient had not had a menstrual period in the last 2 years, most likely secondary to low BMI and disturbed HPO axis. Prolactin level was noted to be elevated at 47.[address] head and brain MRI showed no pituitary mass. Patient can
follow-up with her primary care physician and director broadcast for further workup for elevated prolactin
4.Seizure
Patient had a seizure activity, on September 29, 2024. Her stat CT head was done which was normal. Neurology was consulted. Her EEG and MRI brain were within normal limits. Patient was initially started on Keppra but this was discontinued. Patient
can follow up with Neuro outpatient.
Important imaging findings :
Abdomen pelvis CT 09/27/2024
IMPRESSION:
1. SEVERE ACUTE PANCOLITIS. Diagnostic possibilities are (1) acute infectious colitis or (2) acute ulcerative colitis.
2. SEVERE DIFFUSE HEPATIC STEATOSIS and moderate hepatomegaly.
3. Minimal peritoneal fluid in the pelvis.
Head CT 09/29/2024
IMPRESSION:
There are no focal or acute intracranial abnormalities.
There is mild-moderate diffuse cortical and cerebellar atrophy
Brain MRI 10/01/2024
IMPRESSION: No evidence of acute intracranial abnormality.
Mild prominence of subarachnoid cisterns superior to both cerebral hemispheres, suggesting mild cerebral atrophy
Discharge Plan
-
Patient Disposition: Home (Routine Discharge)
Discharge Diagnosis/Procedures: Acute pancreatitis secondary to alcohol use(resolved)
Acute Psychosis(resolved)
Acute diarrhea(resolved)
Alcohol use disorder(Patient aware)
Condition: Fair
Diet: Regular
Activity: As tolerated
Driving Restrictions: No driving for 6 months as per Neuro
Bathing Restrictions: None
Blood Work: BMP in one week
Activity Restrictions/Additional Instructions:
Follow up with primary care physician/director broadcast for elevated prolactin level(47.8),MRI brain within normal limits on this admission
Referrals:
Radha Rosas MD [Active] - (4-8 wks for pancreatitis, GERD and abnormal CT scan)
Ofelia Jerez MD [Consulting Staff] - in one week
Laverne Lozano MD [Active] -
NONE,* [Family Provider] - in less than 1 week ([facility] -To make an appointment call [phone])
Additional Discharge Medication Instructions: Use OTC multivitamins,one tablet daily
Prescriptions:
New
folic acid 1 mg Tablet
1 mg PO DAILY 30 Days Qty: 30 0RF
melatonin 5 mg Tablet
5 mg PO HS 30 Days Qty: 30 0RF
thiamine HCl (vitamin B1) 50 mg tablet
50 mg PO DAILY Qty: 30 0RF
Discharge Orders:
Discharge Patient (As Directed); Ordered 10/02/24
Ordered By: Julian Eubanks
Discharge Date and Time
Discharge Date/Time: 10/02/24 18:00
Print Language: CAPE VERDEAN
--- NOTE | 2024-10-02 18:05 | PTCARENOTE ---
Patient discharged home. Patient left with mother through main entrance and visitor escort via wheel chair. All discharge instructions reviewed and all questions answered.
== END 2024-10-02 18:00 | disposition home or self-care (01) | DRG 438 ==
LOC: IMU 13:06
PROVIDERS: Hospitalist; ADMITTING PHYSICIAN Hospitalist; ATTENDING PHYSICIAN Internal Medicine; CONSULT PHYSICIAN Internal Medicine Gastroenterology; CONSULT PHYSICIAN Psychiatry & Neurology Neurology; CONSULT PHYSICIAN Psychiatry & Neurology Psychiatry; EMERGENCY PHYSICIAN Emergency Medicine
DX: K85.20 Alcohol induced acute pancreatitis without necrosis or infection (principal); G92.8 Other toxic encephalopathy; E44.0 Moderate protein-calorie malnutrition; F23 Brief psychotic disorder; K92.0 Hematemesis; F50.20 Bulimia nervosa, unspecified; Z68.1 Body mass index [BMI] 19.9 or less, adult; F10.20 Alcohol dependence, uncomplicated; R19.7 Diarrhea, unspecified; F17.200 Nicotine dependence, unspecified, uncomplicated; N91.1 Secondary amenorrhea; R56.9 Unspecified convulsions; K76.0 Fatty (change of) liver, not elsewhere classified; G31.9 Degenerative disease of nervous system, unspecified; E87.6 Hypokalemia; Z83.3 Family history of diabetes mellitus; F11.11 Opioid abuse, in remission; E86.0 Dehydration; F12.20 Cannabis dependence, uncomplicated
CPT/HCPCS: 70450; 70551; 74177; 80048; 80053; 80306; 80307; 81003; 81015; 82077; 82140; 82150; 82248; 82306; 82533; 82550; 82607; 82746; 82962; 83690; 83735; 84100; 84146; 84443; 84478; 84703; 85025; 85027; 86140; 86706; 86708; 86709; 86803; 87045; 87046; 87077; 87086; 87324; 87328; 87329; 87340; 87427; 87449; 87798; 93005; 95816; 96361; 96365; 96366; 96375; 96376; 99285; Q9967

== ENCOUNTER 2025-04-18 19:14 | Inpatient (IN) | payer OTHER, SELFPAY ==
[2025-04-18] VITALS (14 sets, daily range): BP systolic 110–144; BP diastolic 63–119; PULSE 79–88; BMI 18.7
[2025-04-18 13:40] LABS: HCG, Serum Qualitative Screen Negative
[2025-04-18 13:48] LABS: ALT (SGPT) 55 U/L (0-35); AST (SGOT) 197 U/L (14-36); Albumin 5.2 g/dl (3.5-5.0); Alkaline Phosphatase 179 U/L (38-126); Blood Urea Nitrogen 7 mg/dl (7-17); Calcium 8.7 mg/dl (8.4-10.2); Carbon Dioxide 25 mmol/L (22-30); Chloride 106 mmol/L (98-107); Glucose 118 mg/dl (70-99); Potassium 4.1 mmol/L (3.5-5.1); Sodium 146 mmol/L (135-145); Total Protein 8.4 g/dl (6.3-8.2); eGFR > 60.00
[2025-04-18 14:02] LABS: Hematocrit 37.0 % (37.0-47.0); Hemoglobin 13.2 g/dL (12.0-16.0); Mean Corp Hgb Conc. 35.7 g/dL (33.0-37.0); Mean Corpuscular Volume 103.6 fL (81.0-99.0); Platelet Count 139 10^3/uL (130-400); Red Cell Dist. Width 12.3 % (11.5-14.5)
[2025-04-18 14:23] LABS: Nucleated Red Blood Cells % 0 %
--- NOTE | 2025-04-18 15:04 | ED.GENMED ---
History of Present Illness
General
Chief Complaint: Failure to Thrive
Source: patient and family
Exam Limitations: none
Time Seen by Provider: 04/18/25 14:34
Nursing documentation reviewed up to this point in time: agreed with
History of Present Illness
History of Present Illness:
Patient is a 35-year-old female with past medical history of alcohol use disorder psychosis ,opiate use disorder ( sober for 15 yrs) , pancreatitis presents to the ED for evaluation.
Pt lives with boyfriend and mom reports boyfriend called her because patient has not been eating/drinking and they are very concerned about malnutrition.. Also having intermittent seizures in the beginning of the week and also has had episodes of
passing out. Patient did fall down steps a week ago and has bruising to left arm and left leg No headache since, no vomiting
mom reports pt was diagnosed with seizures however has never been evaluated by neurologist. Patient was admitted September 2024 here and did have witnessed tonic-clonic seizure. She was eval by neurology at that time and Keppra was discontinued.
Mom reports patient had a syncopal episode in the waiting room and then had a witnessed seizure. Mom reports this as facial twitching and arm twitching.
Patient presents awake alert she admits to not eating and drinking well. She does drink alcohol and last drank vodka this morning. She denies any hallucinations.
She does report she also got bit by her dog to the left wrist this morning(she was trying to give her dog medication.) Dog shots are up-to-date.
Past History
Past History
ED Past Medical History: Psychiatric
ED Past Surgical History: None
Social History
Tobacco: Smoker
Alcohol: Occasional
Drug: Marijuana
Personal: Single
Living: with family
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
Phy Exam
General Physical Exam
General Presentation: no apparent distress
General age: appears stated age
General Skin: warm and dry
General Habitus: cachetic
General Mental: alert
General Hydration: dry mucous membranes
Cardiovascular Exam
Cardiovascular Exam: regular rate/rhythm, no murmur and normal peripheral pulses
Pulmonary Exam
Pulmonary Exam: lungs clear and no respiratory distress
Neurological Exam
Neurological Exam: alert
Musculoskeletal Exam
Musculoskeletal Exam: other (left wrist with puncture + ecchymosis to left lateral thigh and left upper arm full range of motion no obvious head injury)
Skin Exam
Skin Exam: normal color and warm/dry
Psychiatric Exam
Psychiatric Exam: normal mood/affect
Course
Orders/Labs/Results
Orders:
Orders
04/18/25 13:19
Test Result ONCE
04/18/25 13:24
Alcohol Urgent
Complete Blood Count/With Diff Urgent
Comprehensive Metabolic Panel Urgent
HCG, Serum Qualitative Screen Urgent
04/18/25 15:21
CT Head W/o Iv Contrast Urgent
Comment:
Reason For Exam: seizure
04/18/25 15:30
Add On- LAB Urgent
Tests Added?: alcohol
04/18/25 16:38
Amoxicillin 875 mg/Clav 125 mg [Augmentin 875 mg/125 mg] 1 tablet PO NOW STA
04/18/25 16:40
Orthostatic VS- Treatment ONCE
04/18/25 16:43
Electrocardiogram (*1) Stat
Reason for Study: Other
Other Reason for Exam: chest pain
EKG- Treatment ONCE
04/18/25 17:51
IV Insert/Care/Rem.- Treatment PRN
0.9% Sodium Chloride 1000 ml [Nss] 1,000 ml IV BOLUS
Abnormal Lab Results
04/18/25
13:24
RBC 3.57 L 10^6/uL
(4.20-5.40)
MCV 103.6 H fL
(81.0-99.0)
MCH 37.0 H pg
(27.0-31.0)
Neutrophils % 35.8 L %
(42.2-75.2)
Lymphocytes % 51.5 H %
(20.5-51.1)
Monocytes % 10.5 H %
(1.7-9.3)
Sodium 146 H mmol/L
(135-145)
Creatinine 0.5 L mg/dL
(0.6-1.0)
Glucose 118 H mg/dl
(70-99)
AST 197 H U/L
(14-36)
ALT 55 H U/L
(0-35)
Alkaline Phosphatase 179 H U/L
(38-126)
Total Protein 8.4 H g/dl
(6.3-8.2)
Albumin 5.2 H g/dl
(3.5-5.0)
Alcohol, Quantitative 411 H* mg/dl
04/18/25 13:24
04/18/25 13:24
Vital Signs
Initial and Last Documented VS:
Initial Vital Signs
Temp Pulse Resp BP Pulse Ox
98.5 F 110 16 144/90 95
04/18/25 13:16 04/18/25 13:16 04/18/25 13:16 04/18/25 13:16 04/18/25 13:16
Last Documented Vital Signs
Temp Pulse Resp BP Pulse Ox
98.5 F 82 18 128/95 99
04/18/25 13:16 04/18/25 17:45 04/18/25 17:45 04/18/25 17:08 04/18/25 16:41
MDM/Problems Addressed
MDM/Problems Addressed:
As documented patient is a 34-year-old female with history of alcohol abuse presents to the ER for evaluation. Patient was brought to the ER by mom patient lives with boyfriend who called mother concerned as patient has had multiple episodes of
passing out this week and episodes of seizures. She has was diagnosed with seizures when she was here in September and eval by neurology at that time. Keppra however was discontinued. She has not been able to see neurology as an outpatient because
she reports she has Medicaid. Patient does drink alcohol still and drank this morning. She presents awake alert however she is able to give history. Her alcohol level is 411. She does have a history of elevated LFTs they are elevated again here
in the ER. She does appear dry however is drinking fluids. Her sodium is 146. Will give a liter of fluids. She did tell. In addition patient apparently fell down the steps last week with history of alcohol abuse and recent fall CT head ordered
and negative. Patient does have bruising to left arm and left leg. In addition not related to patient's initial complaint she was bitten by her dog today to her left wrist while attempting to give her medication and Augmentin was given. Wound was
irrigated by plastics technician tetanus also updated.
With patient's chronic alcohol use malnutrition dehydration and multiple complaints of passing out and seizures would recommend admission. Patient with no seizure activity here.
Chronic conditions affecting care:
chronic alcohol use
*Radiology
Radiology exam reviewed: radiology read reviewed
*Pulse Oximetry
SaO2: 99
Oxygen Mode of Delivery: Room air
Patient hypoxic: no
*Critical Care Note
Total Time (30-74mins, 75-104mins- exclusive of procedures): Not Applicable
Data Reviewed
Review of Other/Old Records Reveals: Labs and Discharge Summary
Source: patient and family
ED Attending Note
-
Portions of this chart may have been created with voice recognition software.� Occasional wrong word or��sound alike� substitutions may have occurred due to the inherent limitations of voice recognition software.
Discharge Plan
Departure
Patient Disposition: Admit
Date of Disposition: 04/18/25
Time of Disposition: 18:11
Admit to: Telemetry
Admit to doctor: hospitalist
Presentation/result/management discussed w/ accepting MD/DO: Hospitalist
Patient with high blood pressure during this ER visit?: Yes
Condition: Fair
Covid-19: Not Applicable
Discharge Problem:
Acute dehydration, Syncope, possible seizure , Transaminitis, Dog bite
Prescriptions:
No Action
folic acid 1 mg Tablet
1 mg PO DAILY 30 Days Qty: 30 0RF
melatonin 5 mg Tablet
5 mg PO HS 30 Days Qty: 30 0RF
thiamine HCl (vitamin B1) 50 mg tablet
50 mg PO DAILY Qty: 30 0RF
Referrals:
NONE,* [Family Provider, Internal Medicine]
Interventions
Interventions:
*Risk Screen - Suicide Last Done: 04/18/25 13:20
*General Assessment Last Done: 04/18/25 14:17
*Neglect/Abuse Screening Last Done: 04/18/25 13:20
*ED- Fall Risk Assessment Last Done: 04/18/25 14:17
*ED COVID-19 Vaccine History Last Done: 04/18/25 14:17
Discharge Date and Time
Print Language: PORTUGUESE
[2025-04-18] MEDS: AUGMENTIN 875 MG/125 MG 1 TABLET PO ×2 (17:27→22:27)
[2025-04-18] MEDS: NSS 1000 IV (18:00)
[2025-04-18] MEDS: ADACEL 0.5 ML IM (18:43)
--- NOTE | 2025-04-18 19:00 | HPS.HSE ---
Family Physician
-
Family Physician: * NONE
Chief Complaint
-
Recurrent episodes of loss of consciousness
History of Present Illness
Patient is a 35 y/o female past medical history of alcohol use disorder who presents with recurrent episodes of loss of consciousness. Additional history is provided by her mother and boyfriend at the bedside. Over the past week patient has been
experiencing daily episodes of loss of consciousness. Patient seems to get a sensation that she is going to pass out and usually attempt to sit or lower herself to the ground prior. Her boyfriend notes that he will give her sugar and that seems to
help her recover faster. Last night patient had an episode where her eyes were half-closed, she seemed to be staring off and not interactive. Family brought her to the emergency department today. While in the waiting room patient had an episode
of head and arm twitching noted by her mother.
Medical History
Past Medical History
Past Medical History: Reports Other
Additional Past Medical History:
Alcohol Use Disorder
Past Surgical History: Reports None
Social History
Tobacco: Smoker (/2 PPD)
Alcohol: Daily (Boyfriend reports she drink 3L of vodka a week)
Drug: Marijuana
Family History
Family History: Not pertinent
Allergies / Home Medications
Allergies reflects when Allergies were last updated in [facility].
Home Medications with original date entered in [facility]
Allergy/Medication List:
Allergies
Allergy/AdvReac Type Severity Reaction Status Date / Time
No Known Allergies Allergy Unverified 10/05/09 19:11
Home Medications
No Meds [No Current Medications] 04/18/25
Review of Systems
-
A 12 point ROS was completed and negative except as noted: Yes
Constitutional: Denies Fever or Chills
Respiratory: Denies Cough or Trouble Breathing
Cardiac: Denies Chest Pain or Palpitations
Abdomen/GI: Reports Anorexia (Boyfriend notes she will go days without eating) and Other (Difficulty / Pain with swallowing)
Skin: Reports Other (Recent dog bite to left wrist)
Neurological: Reports See HPI and Other (Patient reports having tonic-clonic episodes as a teenager and reports prior concussions)
Physical Exam
Vital Signs
Vital Signs
Temp Pulse Resp BP Pulse Ox
98.5 F 82 18 128/95 99
04/18/25 13:16 04/18/25 17:45 04/18/25 17:45 04/18/25 17:08 04/18/25 16:41
Physical Exam
General: Comfortable and Conversant
HEENT: NormoCephalic, Atraumatic and Other (Slightly dry lips)
Respiratory: Clear and Non Labored Respirations
Cardiac: S1/S2 and Regular Rhythm
GI: Soft and Non Tender
Rectal: Deferred by Provider
Musculoskeletal: No Clubbing, No Cyanosis and No Edema
Skin: Warm, Dry and Other
Neuro: Awake, Alert, Oriented and Nonfocal/grossly intact
Hematologic/Lymphatic: Other (Easy bruising)
Psych: Calm
Laboratory Results
-
04/18/25 13:24
04/18/25 13:24
Laboratory Results
Total Bilirubin 0.7 mg/dl (0.2-1.3) 04/18/25 13:24
AST 197 U/L (14-36) H 04/18/25 13:24
ALT 55 U/L (0-35) H 04/18/25 13:24
Alkaline Phosphatase 179 U/L (38-126) H 04/18/25 13:24
Data Reviewed
-
CT Scan: Report Reviewed by me
Lab Data: Labs Reviewed by me
Impression/Plan
-
Recurrent Episodes of Loss of Consciousness, possible syncope vs seizure (alcohol withdrawal vs epileptic) vs. PNES vs hypoglycemia-related
-Consult Neurology
-Monitor on Telemetry
-Check Echocardiogram
-Blood glucose monitoring QID
-Seizure precautions
-Check TSH and Cortisol level
Hypernatremia
-Continue IVFS
-Recheck sodium in AM
Transaminitis secondary to alcohol
-Continue to trend LFTS
Alcohol Use Disorder
-Patient is high risk for withdrawal
-Monitor MSAS
-Continue phenobarbital taper
-Continue Ativan prn
-Continue thiamine and folic acid
Odynophagia, suspect esophagitis/gastritis
-Consult GI
-Start Protonix BID
Left Wrist Dog Bite
-Continue Augmentin
-Received tetanus booster in AM
Tobacco Use Disorder
-Continue nicotine patch
DVT proph: SCDs
--- NOTE | 2025-04-18 19:39 | W.PN.UPDATE ---
Update Note
Progress Note Update
This is an addendum to the H&P written by Fawn Ramírez on 04/18/2025. Patient seen and examined independently with PA.
35-year-old female past medical history of seizures since age of 17, alcohol use disorder, hypoglycemia episodes, psychosis, prior concussions, opiate use disorder, pancreatitis, presenting with multiple issues including ongoing seizure-like
activity sometimes with whole body shaking, sometimes with staring episodes, sometimes with lightheadedness and syncope. She has had hypoglycemia previously associated with these episodes.
Also with severe anorexia, with frequent feeling of vomiting and regurgitation after she eats food with discomfort in her esophagus. Occasional psychosis issues, insomnia issues and ongoing depression without suicidal ideation.
She has had fall falling down the steps of bruise to the left arm and left leg. Witnessed seizure/syncopal episode in waiting room with facial and arm twitching. Also got bit by her dog on the left wrist this morning.
She was admitted in September for multiple issues including acute pancreatitis, psychosis, amenorrhea and seizure. EEG and MRI unremarkable at that time. She was started on Keppra which was later discontinued after workup was negative. Found to
have elevated prolactin at that time.
Patient has not been able to follow-up with any specialists due to insurance difficulties. She has never had adequate outpatient neurology follow-up and does not see psychiatry. She was also recommended to see GI as outpatient which never happened.
Vital signs show initial tachycardia up to 110, now normal vital signs.
Labs show sodium of 146. Transaminitis. Alcohol level 400.
Patient with syncopal episodes secondary to alcohol withdrawal seizures versus hypoglycemic episodes. Could be underlying seizure disorder. IV fluids, thiamine and folate, alcohol withdrawal protocol, phenobarbital protocol. Monitor blood sugars.
Check echocardiogram to evaluate for cardiomyopathy. Check a.m. cortisol, TSH, prolactin level to evaluate adrenal function. Neurology consulted. Psychiatry consulted.
Patient with hypernatremia secondary to hypovolemia. Transaminitis secondary to alcohol use. Half-normal saline.
Patient also with odynophagia/Dysphagia versus anorexia nervosa. Likely has underlying alcoholic gastritis and possible esophagitis. Protonix twice daily. Consider GI.
She was given Tdap for dog bite of left wrist. Continue Augmentin.
[2025-04-18] MEDS: 0.45%NACL 1000 IV (22:07)
[2025-04-18] MEDS: THIAMINE INJECTION 200 MG IV (22:08)
[2025-04-18] MEDS: ATIVAN 1 MG PO (22:08)
[2025-04-18] MEDS: PROTONIX 40 MG PO (22:08)
[2025-04-18] MEDS: PHENOBARBITAL 104 MG IV (22:09)
[2025-04-18 22:27] LABS: Glucose - Point of Care 101 mg/dl (70-99)
[2025-04-18] MEDS: ZOFRAN 4 MG IV (22:50)
--- NOTE | 2025-04-18 23:00 | PTCARENOTE ---
Addendum entered by Elida Winters RN 04/19/25 00:53:
Suction set up for seizure precautions.
Original Note:
Patient arrived from ED, with boyfriend at the bedside, to accompany. VSS. MSAS of 7--MSAS checks q 2 hours. PRN ativan administered. AAO x 3. Anxious, at baseline. WAGGONER with 5/5 strength in all four extremities. Patient denies numbness and tingling.
Patient complains of right antecubital IV pain. VAT notified. x 2 new IV sites placed. IV fluids initiated. IV phenobarbital administered. NSR on telemetry. Patient with nausea and vomiting. PRN IV zofran administered. Seizure precautions
ordered--this RN must seek out seizure pads; per patient, she had two seizures in the ED. Skin check completed and documented. Patient oriented to the room. All needs met. Bed in lowest position. Call calixto and personal belongings within reach.
[2025-04-19] VITALS (7 sets, daily range): BP systolic 111–134; BP diastolic 78–87
[2025-04-19] MEDS: ATIVAN 1 MG PO ×3 (04:02→21:32)
--- NOTE | 2025-04-19 06:48 | CON.GI ---
Addendum entered and electronically signed by Kapil Parks DO 04/19/25 10:14:
I saw and examined the patient.
The WOOL PRESSER's note was reviewed and I agree with the note.
Comment: Ms Garcia is a 35 y.o female with past medical history of AUD, PTSD, anxiety/depression, previous history of EtOH-induced pancreatitis and alcohol-associated liver disease who presented to the ED with seizure-like activity and concern for
lightheadedness and syncope. Patient reports ongoing significant alcohol use, drinking approximately 2 handles of hard liquor on a weekly basis. Also endorsed mild dysphagia and odynophagia as well as reflux/heartburn. Denied any melena, coffee
ground emesis or hematemesis. Although did endorse episode of hematemesis weeks ago (?). No NSAIDs and denies any prior EGD/Colon in the past. Found to have elevated transaminases in keeping with mild acute hepatocellular injury secondary to alcohol
use but does not meet criteria for EtOH hepatitis. Suspect her dysphagia and concern for odynophagia in setting of esophagitis from her ongoing, daily significant alcohol use. Prior reported small volume hematemesis weeks ago and may have had an
underlying MWT from previous nausea/vomiting. She would benefit from an eventual EGD at some point prior to discharge, however given the concern for seizure-like activity, syncope, along with concern for EtOH withdrawal would defer any plans for an
endoscopic evaluation at this time. Agree with ongoing supportive care and IV PPI while inpatient. Discussed strict EtOH cessation at length and would likely benefit from EtOH rehab after discharge. Appreciate Neurology and Psychiatry consult
recommendations as well. See rest of care as outlined below.
Discussed with primary internal medicine team. GI will sign-off, please recontact with any questions or concerns.
Original Note:
Consultation
-
Date/Time Consultation Requested: 04/18/250
Date/Time Consultation Performed: 04/19/25 [id number]
Requesting Provider: Fawn Posada PA-C
Performing Provider: MARK Bonds, Kapil Parks DO
Reason for Consultation: vomiting, regurgitation
Medical History
Chief Complaint / HPI
Chief Complaint: seizure/change in mental status, decreased oral intakes
History of Present Illness:
Pt is a 35yo with hx anxiety/depression/PTSD with admission in September with concern for ETOH pancreatitis/hepatitis, psychosis, Seizures with imaging noted pancolitis and steatosis. Pt now presents 04/18 with concern for malnutrition. Pt has been
noted with episodes of seizures and passing out. On admission noted with ETOH level 411, Na 146, bili 0.7, AST 197, ALT 55, ALlk phos 179, albumin 5.2. In review with patient she admits to continued ETOH and tobacco abuse wtih drinking 2 handles
of hard liquor weekly. He weight has been up and down and admits to periods of poor nutrition. She admits to mild odynophagia,, regurgitation of food at times and occasional period of recurrent vomiting then hematemesis with last episode several
weeks ago. She abdominal to abdominal pain and loose non blood stools, balance issues and bruising. She denies constipation, blood or black in stools. No NSAID use. No prior EGD/colonoscopy prior to admission. She also admits to recent dog
bite.
Past Medical History
Past Medical History: Seizures, Psychiatric (anxiety/depression, PTSD) and Other (ETOH abuse, hypoglycemia, psychosis, prior concussion, pancreatitis/hepatitis related to ETOH, malnutrition, opiate/heroin use last 10 + years ago, pancolitis,
hepatic steatosis on imaging in 09/2024)
Social History
Tobacco: Smoker (1/2 - 1 PPD)
Alcohol: Daily (2 handles per week)
Drug: Marijuana and Other (herion )
Personal: Other (boyfriend )
Living: Other (boyfriend )
Employment: Not Employed
Family History
Family History: Other (no family hx colon Ca or other GI issues she is aware of )
Allergies / Home Medications
Allergy/AdvReac Type Severity Reaction Status Date / Time
No Known Allergies Allergy Unverified 10/05/09 19:11
�Medication �Instructions �Recorded
No Meds [No Current Medications] 04/18/25
Review of Systems
-
History Source: Patient
Constitutional: Reports Weight Gain and Weight Loss
EENT: Reports No Symptoms
Respiratory: Reports No Symptoms
Cardiac: Reports No Symptoms
Abdomen/GI: Reports Abdominal Pain, Nausea, Vomiting and Diarrhea
: Reports Dark Urine (at times )
Musculoskeletal: Reports No Symptoms
Skin: Reports No Symptoms
Neurological: Reports Other (hx seizures/passing out , balance issues )
Endocrine: Reports No Symptoms
Hematologic/Lymphatic: Reports Bruising
Vital Signs
Temp Pulse Resp BP Pulse Ox
99.3 F 77 16 121/79 98
04/19/25 03:53 04/19/25 03:53 04/19/25 03:53 04/19/25 03:53 04/19/25 03:53
Physical Exam
Exam
General: Well Developed, Well Nourished and No Apparent Distress
HEENT: Normocephalic and Anicteric
Respiratory: Clear
Cardiac: Regular Rhythm
GI: Soft, Non Tender and Non Distended
Musculoskeletal: No Clubbing and No Cyanosis
Skin: Warm and Dry
Neuro: Awake, Alert, AO x 3 and Other (shakiness )
Psych: Agitated (mild )
Results
WBC 4.9 10^3/uL (4.8-10.8) 04/18/25 13:24
Hgb 13.2 g/dL (12.0-16.0) 04/18/25 13:24
Hct 37.0 % (37.0-47.0) 04/18/25 13:24
MCV 103.6 fL (81.0-99.0) H 04/18/25 13:24
Plt Count 139 10^3/uL (130-400) 04/18/25 13:24
Absolute Neuts (auto) 1.8 10^3/uL (1.4-6.5) 04/18/25 13:24
Sodium 146 mmol/L (135-145) H 04/18/25 13:24
Potassium 4.1 mmol/L (3.5-5.1) 04/18/25 13:24
Chloride 106 mmol/L (98-107) 04/18/25 13:24
Carbon Dioxide 25 mmol/L (22-30) 04/18/25 13:24
BUN 7 mg/dl (7-17) 04/18/25 13:24
Creatinine 0.5 mg/dL (0.6-1.0) L 04/18/25 13:24
Calcium 8.7 mg/dl (8.4-10.2) 04/18/25 13:24
Total Bilirubin 0.7 mg/dl (0.2-1.3) 04/18/25 13:24
AST 197 U/L (14-36) H 04/18/25 13:24
ALT 55 U/L (0-35) H 04/18/25 13:24
Alkaline Phosphatase 179 U/L (38-126) H 04/18/25 13:24
Diagnostic Image Results:
09/2024 CT A/p with IV contrast
1. SEVERE ACUTE PANCOLITIS. Diagnostic possibilities are (1) acute infectious colitis or (2) acute ulcerative colitis.
2. SEVERE DIFFUSE HEPATIC STEATOSIS and moderate hepatomegaly.
3. Minimal peritoneal fluid in the pelvis.
03/2025- CT head -
No acute intracranial abnormality noted.
Prior GI Procedures:
EGD: none
Colonoscopy: none
Assessment / Plan
-
Pt is a 35yo with hx anxiety/depression/PTSD and admission in September with concern for ETOH pancreatitis/hepatitis, psychosis, Seizures with imaging noted pancolitis and steatosis. Pt now presents 04/18 with concern for malnutrition. Pt has been
noted with episodes of seizures and passing out. On admission noted with ETOH level 411, Na 146, bili 0.7, AST 197, ALT 55, ALlk phos 179, albumin 5.2. In review with patient she admits to continued ETOH and tobacco abuse wtih drinking 2 handles
of hard liquor weekly. He weight has been up and down and admits to periods of poor nutrition. She admits to mild odynophagia,, regurgitation of food at times and occasional period of recurrent vomiting then hematemesis with last episode several
weeks ago. She abdominal to abdominal pain and loose non blood stools, balance issues and bruising. She denies constipation, blood or black in stools. No NSAID use. No prior EGD/colonoscopy prior to admission. She also admits to recent dog
bite.
-seizure/syncope prior to admission
-concern for ETOH withdrawal after admission
-increased LFT's
-hypernatremia on admission
-odynophagia/regurgitation
-anxiety/depression
-bruising
-ataxia
-poor nutritional habits
-dog bite prior to admission
other med problems:
-hx prior ETOH hepatitis/pancreatitis
-prior psychosis
-pancolititis per prior imaging
-steatosis
-PTSD
PLAN:
etiology of symptoms with concern for active ETOH withdrawal with tremors on exam
cont ETOH withdrawal protocol per medical team
some complaints of odynophagia, regurgitation -- likely Esophagitis with daily ETOH use
cont PPI
hold EGD with active withdrawal, stable hbg and no recent hematemesis can consider prior to discharge when improved vs OP follow up
discussed with nursing to monitor oral intakes-- pt needs good nutrition --will also add supplement at HS
stressed need to quit etoh
add urine tox screen, lipase and INR
TSH, mag, phos pending
continue thiamine and folate
-
-
Thank you for consultation and allowing me to participate in the patient's care. Please call the professional services consultant GI physician during the after hours with any questions or concerns.
[2025-04-19 08:16] LABS: Glucose - Point of Care 96 mg/dl (70-99)
--- NOTE | 2025-04-19 08:54 | W.PN.HOSP.TC ---
Today's Communication/Plan
-
Alcohol protocol
Assessment / Plan
Assessment / Plan
Physical exam:
General: Acutely ill
HEENT: Normocephalic, Atraumatic and Moist Mucous Membranes
Respiratory: Clear to Auscultation; Negative Wheezes, Rales or Rhonchi
Cardiac: Regular Rhythm and S1/S2
GI: Soft, Nontender and Nondistended
Musculoskeletal: No Clubbing, No Cyanosis and No Edema
Neuro: Awake, Alert and Oriented, no neurological deficits. Tremors present. Horizontal nystagmus present. Tongue fasciculation present.
Psych: Anxious
A/P:
Alcohol withdrawal seizures:
No indication for antiepileptic drugs
Discussed with neurology and no indication for consult at the moment
Continue alcohol withdrawal protocol
Plan for echocardiogram
Severe alcohol withdrawal:
Continue MSA protocol
Continue phenobarbital taper
Continue thiamine and folic acid
Psychiatry consult done but pending upload note
Elevated LFTs:
Due to alcohol
Trend
Hypernatremia:
Resolved
Hypokalemia:
Replete and trend
Hypomagnesemia:
Replete and trend
Cellulitis by dog bite left wrist:
Switch oral Augmentin to IV Unasyn for now
Monitor clinical response
Nausea and vomiting with episode of hematemesis weeks prior to admission/odynophagia:
Continue oral PPI twice daily
GI input appreciated
Might benefit by EGD prior to discharge but GI signed off so will reevaluate closer to discharge
DVT prophylaxis:
SCDs
CODE STATUS:
Full code
Total time spent on today's encounter was 52 minutes which included time spent in counseling the patient/family regarding diagnosis and treatment plan as listed above, goals of care, and symptom management. Case was discussed with nursing staff,
specialists, and care coordinators/case management. All labs and imaging personally reviewed by me. Remainder the time spent in detailed review of previous records, lab data, imaging, and other medical provider documentation.
Anticipated Discharge: > 48 hours
Subjective/Interval History
-
Date of Service: April 19, 2025
Patient still tremulous and anxious. Nausea on and off. No seizure-like activity
Objective Data
-
Labs:
Laboratory Results
04/19/25
06:00
WBC Pending
Hgb Pending
Hct Pending
Plt Count Pending
Sodium Pending
Potassium Pending
Chloride Pending
Carbon Dioxide Pending
BUN Pending
Creatinine Pending
Glucose Pending
Calcium Pending
Total Bilirubin Pending
AST Pending
ALT Pending
Alkaline Phosphatase Pending
Vital Signs:
Vital Signs
Temp Pulse Resp BP Pulse Ox
97.4 F 83 20 127/84 99
04/19/25 08:00 04/19/25 08:00 04/19/25 08:00 04/19/25 08:00 04/19/25 08:00
[2025-04-19] MEDS: AUGMENTIN 875 MG/125 MG 1 TABLET PO (09:44)
[2025-04-19] MEDS: PROTONIX 40 MG PO ×2 (09:44→19:38)
[2025-04-19] MEDS: THIAMINE INJECTION 200 MG IV ×2 (09:44→19:38)
[2025-04-19] MEDS: PHENOBARBITAL 97.5 MG IV ×3 (09:45→21:00)
[2025-04-19] MEDS: FOLVITE 1 MG PO (09:45)
[2025-04-19] MEDS: NICODERM TRANSDERMAL 14 MG TRANSDERM (09:45)
[2025-04-19 10:14] LABS: Hematocrit 34.2 % (37.0-47.0); Hemoglobin 11.8 g/dL (12.0-16.0); Mean Corp Hgb Conc. 34.5 g/dL (33.0-37.0); Mean Corpuscular Volume 106.2 fL (81.0-99.0); Platelet Count 110 10^3/uL (130-400); Red Cell Dist. Width 12.5 % (11.5-14.5)
[2025-04-19 10:58] LABS: AST (SGOT) 275 U/L (14-36); Albumin 4.9 g/dl (3.5-5.0); Alkaline Phosphatase 138 U/L (38-126); Blood Urea Nitrogen 5 mg/dl (7-17); Calcium 9.1 mg/dl (8.4-10.2); Carbon Dioxide 24 mmol/L (22-30); Chloride 97 mmol/L (98-107); Estimated Creatinine Clearance 107 ml/min; GGTP 950 U/L (12-43); Glucose 170 mg/dl (70-99); Lipase 237 U/L (23-300); Magnesium 1.0 mg/dl (1.6-2.3); Potassium 3.4 mmol/L (3.5-5.1); Sodium 135 mmol/L (135-145); Total Protein 8.2 g/dl (6.3-8.2); eGFR > 60.00
[2025-04-19 11:08] LABS: ALT (SGPT) 58 U/L (0-35)
[2025-04-19 11:27] LABS: Cortisol, Random 27.5 ug/dl
--- NOTE | 2025-04-19 11:51 | CM ---
manager biostatistics reviewed patient's chart and met with patient and patient reports she lives with her significant other in a multilevel home, with steps into home and to bed and bathroom, patient is independent with adl's and ambulation, no dme, patient
drives, cyanide case hardener receives a consult for substance abuse and spoke with patient regrading options for treatment and support after discharge, patient has declined a referral to [facility].
PCP: None, provided information on residency clinic.
[2025-04-19 12:27] LABS: Glucose - Point of Care 93 mg/dl (70-99)
[2025-04-19] MEDS: 0.45%NACL 1000 IV (13:23)
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
[2025-04-19] MEDS: MAGNESIUM SULFATE 100 IV (15:05)
[2025-04-19] MEDS: KCL 40 MEQ PO (15:05)
[2025-04-19] MEDS: UNASYN IV ×2 (16:48→21:02)
[2025-04-19 17:06] LABS: Glucose - Point of Care 110 mg/dl (70-99)
[2025-04-19] MEDS: MELATONIN 5 MG PO (21:32)
[2025-04-19 21:49] LABS: Glucose - Point of Care 152 mg/dl (70-99)
[2025-04-20] VITALS (7 sets, daily range): BP systolic 108–132; BP diastolic 72–90; PULSE 84–106
[2025-04-20] MEDS: UNASYN IV ×4 (04:30→21:56)
[2025-04-20 07:42] LABS: INR 0.94; PT 13.0 Sec (11.4-14.6)
[2025-04-20 08:01] LABS: Hematocrit 35.8 % (37.0-47.0); Hemoglobin 12.5 g/dL (12.0-16.0); Mean Corp Hgb Conc. 34.9 g/dL (33.0-37.0); Mean Corpuscular Volume 105.0 fL (81.0-99.0); Platelet Count 114 10^3/uL (130-400); Red Cell Dist. Width 12.2 % (11.5-14.5)
[2025-04-20 08:08] LABS: Glucose - Point of Care 115 mg/dl (70-99)
[2025-04-20 08:26] LABS: ALT (SGPT) 50 U/L (0-35); AST (SGOT) 202 U/L (14-36); Albumin 4.4 g/dl (3.5-5.0); Alkaline Phosphatase 131 U/L (38-126); Blood Urea Nitrogen 2 mg/dl (7-17); Calcium 9.0 mg/dl (8.4-10.2); Carbon Dioxide 28 mmol/L (22-30); Chloride 102 mmol/L (98-107); Estimated Creatinine Clearance 107 ml/min; Glucose 105 mg/dl (70-99); Magnesium 2.0 mg/dl (1.6-2.3); Potassium 3.7 mmol/L (3.5-5.1); Sodium 136 mmol/L (135-145); Total Protein 7.5 g/dl (6.3-8.2); eGFR > 60.00
[2025-04-20] MEDS: FLUSH (NSS) 1 FLUSH IV (09:05)
[2025-04-20] MEDS: THIAMINE INJECTION 200 MG IV ×2 (09:05→19:30)
[2025-04-20] MEDS: NICODERM TRANSDERMAL 14 MG TRANSDERM (09:06)
[2025-04-20] MEDS: FOLVITE 1 MG PO (09:06)
[2025-04-20] MEDS: PROTONIX 40 MG PO ×2 (09:06→19:29)
[2025-04-20] MEDS: PHENOBARBITAL 97.5 MG IV ×3 (09:13→21:54)
--- NOTE | 2025-04-20 10:59 | W.PN.UPDATE ---
Update Note
Progress Note Update
Chart reviewed, patient seen. Chio was pleasant, conversant. Reports mood as 'not bad.' Denies SI. Reports improvement in appetite. Patient reports withdrawal symptoms have lessened, reports continued sweating, mild notable tremor. Chio
states her biggest concern is her sleep. Reports 4 hours of sleep a night, this was an issue prior to hospitalization. Desires medication to help her sleep, citing multiple failed medication trials in past. Ambien 10mg was reportedly the only thing
that worked for her, patient informed that this would be contraindicated with heavy alcohol use and current sedating medications. States the trazodone caused hallucinations. Patient informed that a sleep medication can be explored in an outpatient
setting, patient receptive. Patient reports desire and motivation to 'cut back' on drinking alcohol when she is discharged stating 'I've done it before.'
Imp: Alcohol Use d/o, severe; concern for withdrawal
Unspecified depression and anxiety by history
Rec: Continue MSAS and phenobarb taper. Encourage pt to consider alcohol rehab- continues to decline inpatient services
--- NOTE | 2025-04-20 11:28 | W.PN.HOSP.TC ---
Today's Communication/Plan
-
MSA protocol
Assessment / Plan
Assessment / Plan
Physical exam:
General: Acutely ill but no acute distress
HEENT: Normocephalic, Atraumatic and Moist Mucous Membranes
Respiratory: Clear to Auscultation; Negative Wheezes, Rales or Rhonchi
Cardiac: Regular Rhythm and S1/S2
GI: Soft, Nontender and Nondistended
Musculoskeletal: No Clubbing, No Cyanosis and No Edema
Neuro: Awake, Alert and Oriented, no neurological deficits. Tremors present. No nystagmus present. No tongue fasciculation present.
Psych: Anxious
A/P:
Alcohol withdrawal seizures:
No indication for antiepileptic drugs
Continue alcohol withdrawal protocol
Echocardiogram unremarkable
Severe alcohol withdrawal:
Continue MSA protocol
Continue phenobarbital taper
Continue thiamine and folic acid
Psychiatry consult appreciated
Elevated LFTs:
Due to alcohol
Trending down
Hypernatremia:
Resolved
Hypokalemia:
Repleted and trend
Hypomagnesemia:
Repleted and trend
Cellulitis by dog bite left wrist:
Continue IV Unasyn for now and will switch to oral over the next 24 to 48 hours
Monitor clinical response
Nausea and vomiting with episode of hematemesis weeks prior to admission/odynophagia:
Continue oral PPI twice daily
GI input appreciated
Might benefit by EGD prior to discharge but GI signed off so will reevaluate closer to discharge if inpatient or outpatient
DVT prophylaxis:
SCDs
CODE STATUS:
Full code
Time spent 35 minutes
Anticipated Discharge: 24 - 48 hours
Subjective/Interval History
-
Date of Service: April 20, 2025
Patient feels less anxious and less tremors. No nausea or vomiting
Objective Data
-
Labs:
Laboratory Results
04/20/25
06:32
WBC 3.9 L
Hgb 12.5
Hct 35.8 L
Plt Count 114 L
PT 13.0
INR 0.94
Sodium 136
Potassium 3.7
Chloride 102
Carbon Dioxide 28
BUN 2 L
Creatinine 0.5 L
Glucose 105 H
Calcium 9.0
Total Bilirubin 1.3
AST 202 H
ALT 50 H
Alkaline Phosphatase 131 H
Vital Signs:
Vital Signs
Temp Pulse Resp BP Pulse Ox
98.4 F 96 18 132/88 99
04/20/25 07:55 04/20/25 07:55 04/20/25 07:55 04/20/25 07:55 04/20/25 07:55
I&O
04/19/25 04/20/25 04/21/25
06:59 06:59 06:59
Intake Total 1730 / 1730 120 / 120
Balance 1730 / 1730 120 / 120
--- NOTE | 2025-04-20 11:29 | CM ---
Home with significant other when stable.
Plan; Home at discharge.
[2025-04-20 11:41] LABS: Glucose - Point of Care 180 mg/dl (70-99)
[2025-04-20] MEDS: FLUSH (NSS) 2 FLUSH IV (15:56)
[2025-04-20 17:13] LABS: Glucose - Point of Care 127 mg/dl (70-99)
--- NOTE | 2025-04-20 18:42 | VATNOTE ---
Called to assess right arm phlebitis. Iv dc'd noted 1x1cm palpable cord, red and painful. Warm compress applied. Will monitor closely.
[2025-04-20] MEDS: MELATONIN 5 MG PO (21:55)
[2025-04-20 21:58] LABS: Glucose - Point of Care 114 mg/dl (70-99)
[2025-04-21 03:56] VITALS: BP 120/81
[2025-04-21] MEDS: UNASYN IV ×2 (05:03→10:41)
[2025-04-21 07:00] VITALS: BP 116/84
[2025-04-21] MEDS: PROTONIX 40 MG PO (07:14)
[2025-04-21] MEDS: NICODERM TRANSDERMAL 14 MG TRANSDERM (07:14)
[2025-04-21] MEDS: LUMINAL 64.8 MG PO (07:14)
[2025-04-21] MEDS: THIAMINE INJECTION 200 MG IV (07:15)
[2025-04-21] MEDS: FOLVITE 1 MG PO (07:15)
[2025-04-21 07:25] LABS: Glucose - Point of Care 100 mg/dl (70-99)
[2025-04-21 08:23] LABS: Hematocrit 34.1 % (37.0-47.0); Hemoglobin 11.5 g/dL (12.0-16.0); Mean Corp Hgb Conc. 33.7 g/dL (33.0-37.0); Mean Corpuscular Volume 106.2 fL (81.0-99.0); Platelet Count 100 10^3/uL (130-400); Red Cell Dist. Width 11.9 % (11.5-14.5)
[2025-04-21 09:04] LABS: ALT (SGPT) 45 U/L (0-35); AST (SGOT) 149 U/L (14-36); Albumin 4.4 g/dl (3.5-5.0); Alkaline Phosphatase 115 U/L (38-126); Blood Urea Nitrogen 3 mg/dl (7-17); Calcium 9.1 mg/dl (8.4-10.2); Carbon Dioxide 24 mmol/L (22-30); Chloride 105 mmol/L (98-107); Estimated Creatinine Clearance 107 ml/min; Glucose 132 mg/dl (70-99); Magnesium 1.4 mg/dl (1.6-2.3); Potassium 4.0 mmol/L (3.5-5.1); Sodium 139 mmol/L (135-145); Total Protein 7.3 g/dl (6.3-8.2); eGFR > 60.00
[2025-04-21] MEDS: MAGNESIUM SULFATE 50 IV (10:41)
[2025-04-21 11:00] VITALS: BP 123/83
--- NOTE | 2025-04-21 11:11 | W.PN.HOSP.TC ---
Today's Communication/Plan
-
Discharge planning
Assessment / Plan
Assessment / Plan
Physical exam:
General: no acute distress
HEENT: Normocephalic, Atraumatic and Moist Mucous Membranes
Respiratory: Clear to Auscultation; Negative Wheezes, Rales or Rhonchi
Cardiac: Regular Rhythm and S1/S2
GI: Soft, Nontender and Nondistended
Musculoskeletal: No Clubbing, No Cyanosis and No Edema
Neuro: Awake, Alert and Oriented, no neurological deficits. Tremors improved. No nystagmus present. No tongue fasciculation present.
Psych: Anxious
A/P:
Alcohol withdrawal seizures:
No indication for antiepileptic drugs
Continue alcohol withdrawal protocol
Echocardiogram unremarkable
Severe alcohol withdrawal:
Continue MSA protocol
Continue phenobarbital taper
Continue thiamine and folic acid
Psychiatry consult appreciated
Elevated LFTs:
Due to alcohol
Trending down
Hypernatremia:
Resolved
Hypokalemia:
Repleted and trend
Hypomagnesemia:
Repleted and trend
Cellulitis by dog bite left wrist:
change IV Unasyn to oral today
Monitor clinical response
Nausea and vomiting with episode of hematemesis weeks prior to admission/odynophagia:
Continue oral PPI to once daily
GI input appreciated
Might benefit by EGD but GI signed off and no urgent need so will reevaluate as outpatient with GI
DVT prophylaxis:
SCDs
CODE STATUS:
Full code
Anticipated Discharge: Today
Subjective/Interval History
-
Date of Service: April 21, 2025
No new complaints. She was to go home today
Objective Data
-
Labs:
Laboratory Results
04/21/25
07:51
WBC 3.9 L
Hgb 11.5 L
Hct 34.1 L
Plt Count 100 L
Sodium 139
Potassium 4.0
Chloride 105
Carbon Dioxide 24
BUN 3 L
Creatinine 0.5 L
Glucose 132 H
Calcium 9.1
Total Bilirubin 0.8
AST 149 H
ALT 45 H
Alkaline Phosphatase 115
Vital Signs:
Vital Signs
Temp Pulse Resp BP Pulse Ox
98.9 F 78 16 116/84 100
04/21/25 07:00 04/21/25 07:00 04/21/25 07:00 04/21/25 07:00 04/21/25 07:15
I&O
04/20/25 04/21/25 04/22/25
06:59 06:59 06:59
Intake Total 1730 / 1730 720 / 720
Balance 1730 / 1730 720 / 720
--- NOTE | 2025-04-21 11:15 | W.DCSUMMARY ---
Discharge Summary
Discharge Data
Date of Admission: 04/18/25
Date of Discharge: 04/21/25
Total time spent discharging patient (in min): 35
-
Pending Results: No
Hospital Course
Patient 35 years old female history of PTSD, depression, anxiety, alcohol induced pancreatitis, alcohol associated liver disease, came into the hospital with episode of loss of consciousness with possible seizure activity and alcohol withdrawal.
Patient was felt to be in severe alcohol withdrawal and she was started on MSA protocol and phenobarbital taper. Patient admitted drinking heavily prior to admission. Psychiatry was consulted. Patient had alcohol protocol as mentioned and she did
well with protocol. Patient also had some electrolyte abnormalities and it was appropriately replaced. Patient declined any help but strongly encouraged alcohol rehab. She also has not tolerated antidepressants in the past and psychiatry felt no
benefit at the moment. GI evaluated the patient and they recommended to do EGD as inpatient or outpatient but given her medical problems they would defer as outpatient and she did remained stable on oral PPI. Patient also had a cellulitis on her
arm from dog bite and she was treated with IV Unasyn and improved therefore switched to oral antibiotics for a short course as outpatient upon discharge. Patient is eager to go home today and she is medically cleared to go. Unfortunately she is
not very committed to quit alcohol and this will increase her risk of readmissions and increased morbidity mortality in the near future therefore strongly recommended resources to help her upon discharge although ultimately she is to make her final
decision.
Discharge duration: 35 minutes
Discharge Plan
-
Patient Disposition: Home (Routine Discharge)
Discharge Diagnosis/Procedures: Severe alcohol withdrawal. Alcohol withdrawal seizures. Cellulitis. Elevated liver function test due to alcohol. Hypernatremia. Hypokalemia. Hypomagnesemia.
Condition: Fair
Diet: Low Cholesterol
Activity: As tolerated
Blood Work: Please PCP to order CBC, CMP, INR, magnesium within 1 to 2 weeks.
Referrals:
Primary care provider [Other] - in less than 1 week
NONE,* [Family Provider, Internal Medicine]
Kapil Parks, DO [Active, Gastroenterology] - in two to four weeks
Additional Discharge Medication Instructions: Complete alcohol abstinence/cessation.
Prescriptions:
New
folic acid 1 mg Tablet
1 mg PO DAILY Qty: 14 0RF
magnesium L-lactate 84 mg Tablet Extended Release
84 mg PO BID 14 Days Qty: 28 0RF
amoxicillin-pot clavulanate 875-125 mg Tablet
1 tab PO Q12 5 Days Qty: 10 0RF
pantoprazole [Protonix] 40 mg tablet,delayed release (DR/EC)
40 mg PO DAILY Qty: 30 0RF
Discharge Orders:
Discharge Patient (As Directed); Ordered 04/21/25
Ordered By: Les Mcdaniel
Discharge Date and Time
Print Language: HEBREW
[2025-04-21 11:39] LABS: Glucose - Point of Care 119 mg/dl (70-99)
--- NOTE | 2025-04-21 11:42 | W.PN.UPDATE ---
Update Note
Progress Note Update
patient seen chart reviewed. gilson is well known to me from prior admits. she has a long hx of etoh abuse . she believes she can drink responsbibly and says the doctors here have told her this....it seems in her eyes i am the outlier. i have
told her repeatedly in the last hosp that in my opinion she needs to STOP drinking completely and it may take a stay in a rehab to help her to do this. she by contrast said she only relapsed bc she was under a lot of stress and she told me about
moving in to a new home and the myriad problems that have bedeviled them since. reviewed her medical hx and explained how etoh plays a role in the maladies that have landed her at on more than one occasion. she is currently being rx with
phenobarb detox protocol as well as msas. she did not appear in any distress when i saw her today. we discussed that she has not had a period in two years. she said she wanted to see supervisor costuming but could not find one in her network. she has not found a
pcp either. i reviewed the list of providers in her network and suggested [facility] for primary care. she can start there and surely they can recommend supervisor costuming. will check [facility] in the meantime. she wants dc today. not clear if this will happen.
unfortunately i am not optimistic about gilson getting sober this go around. [facility] should see her if they have not already done so in the hope that they can convince her of the need for sobriety as it seems everyone else has failed
--- NOTE | 2025-04-21 12:10 | CM ---
Patient is for possible discharge to home today, offered patient a [facility] patient declined.
Plan; Home today, no needs.
[2025-04-21 12:51] LABS: FSH 9.7 mIU/ml
[2025-04-21] MEDS: AUGMENTIN 875 MG/125 MG 1 TABLET PO (12:54)
== END 2025-04-21 14:12 | disposition home or self-care (01) | DRG 897 ==
LOC: 4 WEST ACU 19:14
PROVIDERS: Emergency Medicine; Nurse Practitioner Adult Health; Physician Assistant Medical; ADMITTING PHYSICIAN Hospitalist; ATTENDING PHYSICIAN Hospitalist; CONSULT PHYSICIAN Student in an Organized Health Care Education/Training Program; EMERGENCY PHYSICIAN Emergency Medicine; OTHER PHYSICIAN Psychiatry & Neurology Psychiatry
PROC: 3E0234Z Introduction of Serum, Toxoid and Vaccine into Muscle, Percutaneous Approach (ICD-10-PCS; 2025-04-18)
DX: F10.139 Alcohol abuse with withdrawal, unspecified (principal); E87.0 Hyperosmolality and hypernatremia; L03.114 Cellulitis of left upper limb; R64 Cachexia; Z68.1 Body mass index [BMI] 19.9 or less, adult; Y90.8 Blood alcohol level of 240 mg/100 ml or more; F17.210 Nicotine dependence, cigarettes, uncomplicated; S61.552A Open bite of left wrist, initial encounter; W54.0XXA Bitten by dog, initial encounter; E86.0 Dehydration; F43.10 Post-traumatic stress disorder, unspecified; F41.9 Anxiety disorder, unspecified; F32.A Depression, unspecified; K70.0 Alcoholic fatty liver; R56.9 Unspecified convulsions; E87.6 Hypokalemia; E83.42 Hypomagnesemia; R13.10 Dysphagia, unspecified; Z23 Encounter for immunization; Z87.820 Personal history of traumatic brain injury
CPT/HCPCS: 70450; 80053; 80306; 80307; 82077; 82533; 82962; 82977; 83001; 83002; 83690; 83735; 84100; 84146; 84443; 84703; 85025; 85027; 85610; 87070; 90471; 90715; 93005; 93306; 99285